=== PATIENT | female | born 1930 | race Caucasian/White ===

== ENCOUNTER 2017-01-04 20:11 | Inpatient (IN) | payer MEDICARE ==
[~2017-01-04] VITALS: Ht 154.9 cm; Wt 56.4 kg
[2017-01-04 21:40] LABS: BASO # 0.1 x10^3/uL (0.0-0.2); BASO % 1 % (0-3); EOS % 3 % (0-3); HEMATOCRIT 38.2 % (36.0-47.0); HEMOGLOBIN 12.8 g/dL (12.0-15.5); LYMPH # 1.2 x10^3/uL (1.0-4.8); LYMPH % 14 % (24-48); MEAN CORPUSCULAR HEMOGLOBIN 30 pg (25-35); MEAN CORPUSCULAR HGB CONC 34 g/dL (31-37); MEAN CORPUSCULAR VOLUME 88 fL (79-100); MONO % 9 % (0-9); NEUT % 74 % (31-73); PLATELET COUNT 327 x10^3/uL (140-400); RED BLOOD COUNT 4.34 x10^6/uL (3.50-5.40); RED CELL DISTRIBUTION WIDTH 14.1 % (11.5-14.5); WHITE BLOOD COUNT 9.2 x10^3/uL (4.0-11.0)
[2017-01-04 22:00] LABS: CREATININE 0.7 mg/dL (0.6-1.0); GFR 79.2; POTASSIUM 4.9 mmol/L (3.5-5.1)
[2017-01-04] MEDS ORDERED: ASPIRIN 325 MG TABLET PO ONE (22:00)
[2017-01-04 22:03] LABS: ALBUMIN 3.8 g/dL (3.4-5.0); DIRECT BILIRUBIN 0.1 mg/dL (0.0-0.2); TOTAL BILIRUBIN 0.5 mg/dL (0.2-1.0); TOTAL PROTEIN 7.7 g/dL (6.4-8.2)
[2017-01-04] MEDS ORDERED: ACETAMINOPHEN 325 MG TABLET. PO PRN (23:15)
[2017-01-04] MEDS ORDERED: NITROGLYCERIN SUBLINGUAL 0.4 MG BOTTLE OF 25. SL PRN (23:15)
[2017-01-04] MEDS ORDERED: ONDANSETRON PF 4 MG/2 ML VIAL. IV PRN (23:15)
[2017-01-05] VITALS (7 sets, daily range): BP systolic 97–171; BP diastolic 53–107
--- NOTE | 2017-01-05 00:13 | PHYS DOC ---
Past Medical History Past Medical History: High Cholesterol, Other Additional Past Medical Histor: hiatal hernia, VERTIGO Additional Past Surgical Histo: right wrist Alcohol Use: None Drug Use: None Adult General Chief Complaint Chief Complaint: CHEST PAIN-CARDIAC NATURE HPI HPI Patient is a 86 year old female who presents with chest pain radiating to her back that started about 1800 tonight while at rest. Pain was achy and tight to central lower chest. She felt this was acid reflux, so she took Tums without relief. She then was given Zantac by her friend and her symptoms are resolved at this time. She had pain for approximately 1.5 hour. She denies cough, dyspnea , nausea or vomiting, fever or chills, leg pain or swelling, hemoptysis, palpitations, diaphoresis, lightheadedness. Review of Systems Review of Systems Constitutional: Denies fever or chills [] Eyes: Denies change in visual acuity, redness, or eye pain [] HENT: Denies nasal congestion or sore throat [] Respiratory: Denies cough or shortness of breath [] Cardiovascular: No additional information not addressed in HPI [] GI: Denies abdominal pain, nausea, vomiting, bloody stools or diarrhea [] : Denies dysuria or hematuria [] Musculoskeletal: Denies back pain or joint pain [] Integument: Denies rash or skin lesions [] Neurologic: Denies headache, focal weakness or sensory changes [] Endocrine: Denies polyuria or polydipsia [] Current Medications Current Medications Current Medications Medications (Trade) Dose Ordered Sig/[facility] Start Time Stop Time Status Last Admin Dose Admin Aspirin (Rhina Aspirin) 325 mg 1X ONCE 01/04/17 22:00 01/04/17 22:01 DC 01/04/17 21:59 325 MG Allergies Allergies Allergies Coded Allergies Type Severity Reaction Last Updated Verified No Known Drug Allergies 06/01/15 No Physical Exam Physical Exam Constitutional: Well developed, well nourished, no acute distress, non-toxic appearance. [] HENT: Normocephalic, atraumatic, bilateral external ears normal, oropharynx moist, nose normal. [] Eyes: PERRLA, EOMI. [] Neck: Normal range of motion, supple. [] Cardiovascular:Heart rate regular rhythm [] Lungs & Thorax: Bilateral breath sounds clear to auscultation [] Abdomen: Bowel sounds normal, soft, no tenderness. [] Skin: Warm, dry, no erythema, no rash. [] Back: No tenderness, no CVA tenderness. [] Extremities: No tenderness, ROM intact, no edema, no palpable cord. [] Neurologic: Alert and oriented X 3, normal motor function, normal sensory function, no focal deficits noted. [] Psychologic: Affect normal, judgement normal, mood normal. [] Current Patient Data Vital Signs Vital Signs Date Time Temp Pulse Resp B/P Pulse Ox O2 Delivery O2 Flow Rate FiO2 01/04/17 21:59 97 191/93 98 Room Air 01/04/17 20:45 98.2 20 98.2 Lab Values Laboratory Tests Test 01/04/17 20:21 White Blood Count 9.2x10^3/uL (4.0-11.0) Red Blood Count 4.34x10^6/uL (3.50-5.40) Hemoglobin 12.8g/dL (12.0-15.5) Hematocrit 38.2% (36.0-47.0) Mean Corpuscular Volume 88fL (79-100) Mean Corpuscular Hemoglobin 30pg (25-35) Mean Corpuscular Hemoglobin Concent 34g/dL (31-37) Red Cell Distribution Width 14.1% (11.5-14.5) Platelet Count 327x10^3/uL (140-400) Neutrophils (%) (Auto) 74% (31-73) H Lymphocytes (%) (Auto) 14% (24-48) L Monocytes (%) (Auto) 9% (0-9) Eosinophils (%) (Auto) 3% (0-3) Basophils (%) (Auto) 1% (0-3) Neutrophils # (Auto) 6.8x10^3uL (1.8-7.7) Lymphocytes # (Auto) 1.2x10^3/uL (1.0-4.8) Monocytes # (Auto) 0.9x10^3/uL (0.0-1.1) Eosinophils # (Auto) 0.3x10^3/uL (0.0-0.7) Basophils # (Auto) 0.1x10^3/uL (0.0-0.2) Sodium Level 140mmol/L (136-145) Potassium Level 4.9mmol/L (3.5-5.1) Chloride Level 103mmol/L (98-107) Carbon Dioxide Level 31mmol/L (21-32) Anion Gap 6 (6-14) Blood Urea Nitrogen 9mg/dL (7-20) Creatinine 0.7mg/dL (0.6-1.0) Estimated GFR (Cockcroft-Gault) 79.2 Glucose Level 114mg/dL (70-99) H Calcium Level 10.0mg/dL (8.5-10.1) Total Bilirubin 0.5mg/dL (0.2-1.0) Direct Bilirubin 0.1mg/dL (0.0-0.2) Aspartate Amino Transferase (AST) 14U/L (15-37) L Alanine Aminotransferase (ALT) 13U/L (14-59) L Alkaline Phosphatase 73U/L (46-116) Troponin I Quantitative < 0.017ng/mL (0.000-0.055) BI-Mpp-M-Type Natriuretic Peptide 99pg/mL (0-449) Total Protein 7.7g/dL (6.4-8.2) Albumin 3.8g/dL (3.4-5.0) Lipase 219U/L (73-393) Laboratory Tests 01/04/17 20:21 Laboratory Tests 01/04/17 20:21 EKG EKG EKG as interpreted by me as normal sinus rhythm, rate 89, no ST-T changes, normal intervals, no ectopy Radiology/Procedures Radiology/Procedures Chest xray as interpreted by me with no acute cardiopulmonary disease process Course & Med Decision Making Course & Med Decision Making Pertinent Labs and Imaging studies reviewed. (See chart for details) Workup is unremarkable. MARIANO score 1. Discussed need for admission for ACS rule out. She agrees with plan. Discussed case with Dr. Phan, who agrees to admit. Cardiology consult placed. Dragon Disclaimer Dragon Disclaimer This electronic medical record was generated, in whole or in part, using a voice recognition dictation system. Departure Departure Impression: Primary Impression: Chest pain Disposition: ADMITTED INPATIENT Condition: STABLE Referrals: JILL WEINBERG MD (PCP) Problem Qualifiers Primary Impression: Chest pain Chest pain type: other chest pain Qualified Code: R07.89 - Other chest pain Shaheed MIN MD Jan 05, 2017 00:13
[2017-01-05] MEDS ORDERED: hydrALAZINE 20 MG/ML VIAL. IVP PRN (01:30)
[2017-01-05] MEDS: ALPRAZOLAM 0.25 MG TABLET PO PRN ×4 (01:39→21:52)
[2017-01-05] MEDS ORDERED: ALPR0.25 PO (02:53)
[2017-01-05] MEDS ORDERED: VITA150T PO (05:20)
[2017-01-05] MEDS ORDERED: GARL1CAP PO (05:20)
[2017-01-05] MEDS ORDERED: FERR159T3 PO (05:20)
--- NOTE | 2017-01-05 07:15 | EKG ---
[facility] [address] [place] [address] Test Date: 2017-01-05 Test Time: 06:05:39 Pat Name: ANIA HUNT Department: Room: 256 1 Gender: F Content Developer: : 1930 Requested By: Shaheed MIN Order Number: [id number] Reading MD: Lesli Cash Measurements Intervals [place] Rate: 75 P: ND: QRS: -12 QRSD: 102 T: -11 QT: 370 QTc: 416 Interpretive Statements SINUS RHYTHM, LEFTWARD AXIS NORMAL ECG Electronically Signed On 01-09-2017 15:12:11 INSURANCE INVESTIGATOR by Lesli Cash
--- NOTE | 2017-01-05 07:44 | RAD ---
Indication chest pain. PA and lateral views of the chest were obtained. Comparison is made to an exam 05/12/2016. Note is made of a previous two-view examination 03/14/2015. Heart size and pulmonary vessels are normal. Somewhat tortuous thoracic aorta is noted similar to the previous exams. Hiatus hernia is noted. An acute parenchymal infiltrate is not seen. Significant compression of a lower thoracic vertebral body segments is noted. IMPRESSION: No acute process apparent in the chest
--- NOTE | 2017-01-05 08:21 | EKG ---
[facility] [address] [place] [address] Test Date: 2017-01-04 Test Time: 20:52:42 Pat Name: ANIA HUNT Department: Room: 256 1 Gender: F Food And Beverage Coordinator: : 1930 Requested By: Shaheed MIN Order Number: [id number] Reading MD: Lesli Cash Measurements Intervals [place] Rate: 89 P: -8 MN: 180 QRS: -9 QRSD: 100 T: 34 QT: 340 QTc: 415 Interpretive Statements SINUS RHYTHM LEFTWARD AXIS POSSIBLY ABNORMAL ECG RI6.01 Compared to ECG 03/07/2016 14:40:14 No significant changes Electronically Signed On 01-09-2017 15:06:38 MAGNETO SPECIALIST by Lesli Cash
--- NOTE | 2017-01-05 09:23 | PDOC2 ---
JACLYN MALLOY ROUNDING MACHINE TENDER 01/05/17 0923: CARDIAC CONSULT DATE OF CONSULT Date of Consult DATE: 01/05/17 TIME: 09:12 REASON FOR CONSULT Reason for Consult: Chest pain REFERRING PHYSICIAN Referring Physician: Marc SOURCE Source: Chart review, Patient HISTORY OF PRESENT ILLNESS HISTORY OF PRESENT ILLNESS This is a pleasant 86 yo female admitted for complains of chest pain. Reports that this happened last night 1 hour after eating. She took tums with no relief and finally with zantac with some relief but not completely . Slight nausea was described with sustained CP with tightness but no radiation. The intensified sensation lasted about at least 1 hours. Denies any SOA. METS 5 per her description with no immediate change in her tolerance. Denies any palpitations. She has a significant hx of GERD and PUD in the past but no notable cardiac workup. She does have anxiety which she takes xanax for and her BP has been elevated and she blames her anxiety for this. She does not have any routine GERD symptoms. She also has HLP and stopped taking her statin from 6 months ago since her PCP retired. Does not take any ASA. Denies any CAD, falls, recent infection, VTE. PAST MEDICAL HISTORY Cardiovascular: HTN, Hyperlipidemia CENTRAL NERVOUS SYSTEM: Vertigo GI: Diverticulosis, GERD (severe esophagitis), Peptic Ulcer disease Heme/Onc: Anemia NOS Psych: Anxiety Musculoskeletal: low back pain, Osteoarthritis, Other (vertebral compression fractures) Rheumatologic: No pertinent hx Infectious disease: No pertinent hx ENT: No pertinent hx Renal/: No pertinent hx Endocrine: Osteoporosis Dermatology: No pertinent hx PAST SURGICAL HISTORY Past Surgical History: Other (right wrist surgery) FAMILY HISTORY Family History noncontributory to age SOCIAL HISTORY Smoke: No ALCOHOL: none Drugs: None Lives: Alone CURRENT MEDICATIONS CURRENT MEDICATIONS Current Medications Medications (Trade) Dose Ordered Sig/Jossie Route PRN Reason Start Time Stop Time Status Last Admin Dose Admin Aspirin (Rhina Aspirin) 325 mg 1X ONCE PO 01/04/17 22:00 01/04/17 22:01 DC 01/04/17 21:59 Alprazolam (Xanax) 0.25 mg PRN Q8HRS PRN PO ANXIETY / AGITATION 01/05/17 01:30 01/05/17 01:39 ALLERGIES ALLERGIES: Coded Allergies: egg (Verified Allergy, Intermediate, 01/05/17) ROS Review of System 14 point ROS evaluated with pertinent positives noted per HPI PHYSICAL EXAM General: Alert, Oriented X3, Cooperative, No acute distress HEENT: Atraumatic, Mucous membr. moist/pink Lungs: Clear to auscultation, Normal air movement Heart: Regular rate, Normal S1, Normal S2, Other (2/6 systolic murmur to SHAHLA border) Abdomen: Soft, No tenderness Extremities: No cyanosis, Other (1+ bilateral LE pitting edema) Skin: No breakdown, No significant lesion Neuro: Normal speech, Sensation intact Psych/Mental Status: Mental status NL, Mood NL MUSCULOSKELETAL: Osteoarthritic changes both hands VITALS VITALS Vital Signs Date Time Temp Pulse Resp B/P Pulse Ox O2 Delivery O2 Flow Rate FiO2 01/05/17 07:43 98.4 71 18 168/81 95 Room Air 98.4 LABS Lab: Laboratory Tests Test 01/04/17 20:21 01/05/17 04:45 White Blood Count 9.2x10^3/uL (4.0-11.0) Red Blood Count 4.34x10^6/uL (3.50-5.40) Hemoglobin 12.8g/dL (12.0-15.5) Hematocrit 38.2% (36.0-47.0) Mean Corpuscular Volume 88fL (79-100) Mean Corpuscular Hemoglobin 30pg (25-35) Mean Corpuscular Hemoglobin Concent 34g/dL (31-37) Red Cell Distribution Width 14.1% (11.5-14.5) Platelet Count 327x10^3/uL (140-400) Neutrophils (%) (Auto) 74% (31-73) Lymphocytes (%) (Auto) 14% (24-48) Monocytes (%) (Auto) 9% (0-9) Eosinophils (%) (Auto) 3% (0-3) Basophils (%) (Auto) 1% (0-3) Neutrophils # (Auto) 6.8x10^3uL (1.8-7.7) Lymphocytes # (Auto) 1.2x10^3/uL (1.0-4.8) Monocytes # (Auto) 0.9x10^3/uL (0.0-1.1) Eosinophils # (Auto) 0.3x10^3/uL (0.0-0.7) Basophils # (Auto) 0.1x10^3/uL (0.0-0.2) Sodium Level 140mmol/L (136-145) Potassium Level 4.9mmol/L (3.5-5.1) Chloride Level 103mmol/L (98-107) Carbon Dioxide Level 31mmol/L (21-32) Anion Gap 6 (6-14) Blood Urea Nitrogen 9mg/dL (7-20) Creatinine 0.7mg/dL (0.6-1.0) Estimated GFR (Cockcroft-Gault) 79.2 Glucose Level 114mg/dL (70-99) Calcium Level 10.0mg/dL (8.5-10.1) Total Bilirubin 0.5mg/dL (0.2-1.0) Direct Bilirubin 0.1mg/dL (0.0-0.2) Aspartate Amino Transf (AST/SGOT) 14U/L (15-37) Alanine Aminotransferase (ALT/SGPT) 13U/L (14-59) Alkaline Phosphatase 73U/L (46-116) Troponin I Quantitative < 0.017ng/mL (0.000-0.055) < 0.017ng/mL (0.000-0.055) HW-Vpo-U-Type Natriuretic Peptide 99pg/mL (0-449) Total Protein 7.7g/dL (6.4-8.2) Albumin 3.8g/dL (3.4-5.0) Lipase 219U/L (73-393) ASSESSMENT/PLAN ASSESSMENT/PLAN 1. Chest pain 2. GERD/hiatal hernia: likely exacerbation with hx of PUD 3. Accelerated HTN: possible hypertensive heart disease 4. HLP 5. Anxiety 6. Hx of thoracic vertebral compression Recommendations 1. Troponin series normal, EKG reading SR per ED review, since unable to open in EMR 2. CAD pretest prob 34%. MPI, TTE today 3. Recommend routine PPI/GI consult 4. Start on lisinopril. Restart statin. 5. lipid panel, TSH 6. Will consider ECASA pending result of cardiac testing. IF GI is the culprit then may start at a later date. Problems: AMADA REYNOLDS MD 01/05/17 1830: CARDIAC CONSULT ALLERGIES ALLERGIES: Coded Allergies: egg (Verified Allergy, Intermediate, 2/8/17) ASSESSMENT/PLAN ASSESSMENT/PLAN Patient seen and examined. Agree with above nurse practitioner note. 86-year- old woman presenting with atypical chest pain. On examination she has normal heart and lung sounds. Cardiac testing is unremarkable. No further cardio vascular testing necessary at this time. Continue supportive care. Follow up as needed. Thank you for this consultation. Problems: JACLYN MALLOY APRN Jan 05, 2017 09:23 AMADA REYNOLDS MD Jan 05, 2017 18:30
[2017-01-05] MEDS ORDERED: hydrALAZINE 20 MG/ML VIAL. IVP ONE (09:30)
[2017-01-05] MEDS ORDERED: REGADENOSON 0.4 MG/5 ML DISP.SYRIN. IV ONE (10:45)
--- NOTE | 2017-01-05 11:03 | CARD ---
APPROVED REPORT EXAM: Two-dimensional and M-mode echocardiogram with Doppler and color Doppler. Other Information Quality : Average Rhythm : NSR INDICATION Chest Pain 2D DIMENSIONS RVDd2.2 (2.9-3.5cm)Left Atrium(2D)2.6 (1.6-4.0cm) IVSd0.9 (0.7-1.1cm)Aortic Root(2D)3.0 (2.0-3.7cm) LVDd4.3 (3.9-5.9cm)LVOT Diameter2.0 (1.8-2.4cm) PWd0.9 (0.7-1.1cm)LVDs2.3 (2.5-4.0cm) SV63.8 mlLVEF(%)68.4 (>50%) Aortic Valve AoV Peak David.157.5cm/sAoV VTI24.6cm AO Peak GR.9.9mmHgLVOT Peak David.101.8cm/s AO Mean GR.6mmHgAVA (VMAX)2.00cm2 ALEXUS (VTI)2.60cm2 Mitral Valve MV E Zlaptwuq01.6cm/sMV E Peak Gr.4mmHg MV DECEL [id number] A Vcbzhjwx84.8cm/s MV E Mean Gr.3mmHgMV UUP80dv E/A Ratio0.6MVA (PHT)9.25cm2 Tricuspid Valve TR P. Ornefzfb568rd/sRAP DDCEORHV6qiDo TR Peak Gr.87yzJoBOTW68yiFc Pulmonary Vein S1 Uceenztf91.8cm/sD2 Jwczoycs03.1cm/s PVa elrbciww128sbrg LEFT VENTRICLE The left ventricle is normal size. There is normal left ventricular wall thickness. Left ventricle sy stolic function is normal. The Ejection Fraction is 65-70%. There is normal LV segmental wall motion. Tissue Doppler imaging reveals mild left ventricular diastolic dysfunction. Transmitral Doppler flow pattern is Grade I-abnormal relaxation pattern. RIGHT VENTRICLE The right ventricle is normal size. The right ventricular systolic function is normal. ATRIA The left atrium size is normal. The right atrium size is normal. The interatrial septum is intact wit h no evidence for an atrial septal defect or patent foramen ovale as noted on 2-D or Doppler imaging. AORTIC VALVE The aortic valve is calcified but opens well. The aortic valve is trileaflet. Doppler and Color Flow revealed no significant aortic regurgitation. There is no significant aortic valvular stenosis. MITRAL VALVE The mitral valve leaflets are thickened and calcified. The anterior mitral valve leaflet appears to b ow in the middle. There is no mitral valve stenosis. Doppler and Color Flow revealed mild mitral regu rgitation. TRICUSPID VALVE The tricuspid valve is normal in structure and function. Doppler and Color Flow revealed mild to mode rate tricuspid regurgitation. The PA pressure was estimated at 36 mmHg. There is no tricuspid valve s tenosis. PULMONIC VALVE The pulmonic valve is not well visualized. Doppler and Color Flow revealed no pulmonic valvular regur gitation. There is no pulmonic valvular stenosis. GREAT VESSELS The aortic root is normal in size. Normal pulmonary venous flow (Doppler). The IVC is normal in size and collapses >50% with inspiration. PERICARDIAL EFFUSION There is no evidence of significant pericardial effusion. Critical Notification Critical Value: No <Conclusion> Left ventricle systolic function is normal. The Ejection Fraction is 65-70%. There is normal LV segmental wall motion. Transmitral Doppler flow pattern is Grade I-abnormal relaxation pattern. Mild mitral regurgitation. Mild to moderate tricuspid regurgitation. The PA pressure was estimated at 36 mmHg. There is no evidence of significant pericardial effusion.
[2017-01-05] MEDS: PANTOPRAZOLE 40 MG TABLET. PO SCH (12:18)
[2017-01-05] MEDS: LISINOPRIL 20 MG TABLET PO SCH (12:18)
--- NOTE | 2017-01-05 14:17 | PDOC1 ---
History and Physical Past Medical History Cardiovascular: Hyperlipidemia CENTRAL NERVOUS SYSTEM: Vertigo GI: Diverticulosis, GERD (severe esophagitis), Peptic Ulcer disease Heme/Onc: Anemia NOS Psych: Anxiety Past Surgical History Past Surgical History: Other (right wrist surgery) Family History Family History: Other (NO HEART DISEASE) Social History Smoke: No ALCOHOL: none Drugs: None Current Problem List Problem List Problems Medical Problems: (1) Chest pain Status: Acute Current Medications Current Medications Current Medications Medications (Trade) Dose Ordered Sig/Jossie Start Time Stop Time Status Last Admin Dose Admin Acetaminophen (Tylenol) 650 mg PRN Q4HRS PRN 01/04/17 23:15 01/05/17 23:14 Alprazolam (Xanax) 0.25 mg PRN Q6HRS PRN 01/05/17 15:30 Aspirin (Rhina Aspirin) 325 mg 1X ONCE 01/04/17 22:00 01/04/17 22:01 DC 01/04/17 21:59 325 MG Atorvastatin Calcium (Lipitor) 10 mg QHS 01/05/17 21:00 Hydralazine HCl (Apresoline) 10 mg 1X ONCE 01/05/17 09:30 01/05/17 09:31 DC Lisinopril (Prinivil) 20 mg DAILY 01/05/17 10:30 01/05/17 12:18 20 MG Nitroglycerin (Nitrostat) 0.4 mg PRN Q5MIN PRN 01/04/17 23:15 01/05/17 23:14 Ondansetron HCl (Zofran) 4 mg PRN Q8HRS PRN 01/04/17 23:15 01/05/17 23:14 Pantoprazole Sodium (Protonix) 40 mg DAILYAC 01/05/17 10:30 01/05/17 12:18 40 MG Regadenoson (Lexiscan) 0.4 mg 1X ONCE 01/05/17 10:45 01/05/17 10:48 DC 01/05/17 11:53 0.4 MG Allergies Allergies Allergies Coded Allergies Type Severity Reaction Last Updated Verified egg Allergy Intermediate 01/05/17 Yes ROS Review of System CONSTITUTIONAL: No fever or chills EYES: No recent changes SKIN: No rash or itching CARDIOVASCULAR: chest pain, no syncope, palpitations, or edema RESPIRATORY: No SOB or cough GASTROINTESTINAL: No nausea, vomiting or abdominal pain NEUROLOGICAL: No headaches or weakness ENDOCRINE: No cold or heat intolerance GENITOURINARY: No urgency or frequency of urination MUSCULOSKELETAL: No back pain or joint pain LYMPHATICS: No enlarged lymph nodes PSYCHIATRIC: anxiety Physical Exam Physical Exam GEN.: No apparent distress. Alert and oriented. HEENT: Head is normocephalic, atraumatic NECK: Supple. no jvd LUNGS: Clear to auscultation. normal airflow HEART: Tachycardia, S1, S2 present. Peripheral pulses intact ABDOMEN: Soft, nontender. Positive bowel sounds. EXTREMITIES: Without any cyanosis. NEUROLOGIC: Normal speech, normal tone PSYCHIATRIC: Normal affect, normal mood. SKIN: No ulcerations Vitals Vitals Vital Signs Date Time Temp Pulse Resp B/P Pulse Ox O2 Delivery O2 Flow Rate FiO2 01/05/17 12:20 120 127/72 Room Air 01/05/17 07:43 98.4 18 95 98.4 Labs Labs Laboratory Tests Test 01/04/17 20:21 01/05/17 04:45 01/05/17 12:20 White Blood Count 9.2x10^3/uL (4.0-11.0) Red Blood Count 4.34x10^6/uL (3.50-5.40) Hemoglobin 12.8g/dL (12.0-15.5) Hematocrit 38.2% (36.0-47.0) Mean Corpuscular Volume 88fL (79-100) Mean Corpuscular Hemoglobin 30pg (25-35) Mean Corpuscular Hemoglobin Concent 34g/dL (31-37) Red Cell Distribution Width 14.1% (11.5-14.5) Platelet Count 327x10^3/uL (140-400) Neutrophils (%) (Auto) 74% (31-73) Lymphocytes (%) (Auto) 14% (24-48) Monocytes (%) (Auto) 9% (0-9) Eosinophils (%) (Auto) 3% (0-3) Basophils (%) (Auto) 1% (0-3) Neutrophils # (Auto) 6.8x10^3uL (1.8-7.7) Lymphocytes # (Auto) 1.2x10^3/uL (1.0-4.8) Monocytes # (Auto) 0.9x10^3/uL (0.0-1.1) Eosinophils # (Auto) 0.3x10^3/uL (0.0-0.7) Basophils # (Auto) 0.1x10^3/uL (0.0-0.2) Sodium Level 140mmol/L (136-145) Potassium Level 4.9mmol/L (3.5-5.1) Chloride Level 103mmol/L (98-107) Carbon Dioxide Level 31mmol/L (21-32) Anion Gap 6 (6-14) Blood Urea Nitrogen 9mg/dL (7-20) Creatinine 0.7mg/dL (0.6-1.0) Estimated GFR (Cockcroft-Gault) 79.2 Glucose Level 114mg/dL (70-99) Calcium Level 10.0mg/dL (8.5-10.1) Total Bilirubin 0.5mg/dL (0.2-1.0) Direct Bilirubin 0.1mg/dL (0.0-0.2) Aspartate Amino Transf (AST/SGOT) 14U/L (15-37) Alanine Aminotransferase (ALT/SGPT) 13U/L (14-59) Alkaline Phosphatase 73U/L (46-116) Troponin I Quantitative < 0.017ng/mL (0.000-0.055) < 0.017ng/mL (0.000-0.055) < 0.017ng/mL (0.000-0.055) AU-Wkv-J-Type Natriuretic Peptide 99pg/mL (0-449) Total Protein 7.7g/dL (6.4-8.2) Albumin 3.8g/dL (3.4-5.0) Lipase 219U/L (73-393) Triglycerides Level 67mg/dL (0-150) Cholesterol Level 197mg/dL (0-200) LDL Cholesterol, Calculated 118mg/dL (0-100) VLDL Cholesterol, Calculated 13mg/dL (0-40) HDL Cholesterol 66mg/dL (40-60) Cholesterol/HDL Ratio 3.0 Thyroid Stimulating Hormone (TSH) 1.725uIU/mL (0.358-3.74) Laboratory Tests Test 01/04/17 20:21 01/05/17 04:45 01/05/17 12:20 White Blood Count 9.2x10^3/uL (4.0-11.0) Red Blood Count 4.34x10^6/uL (3.50-5.40) Hemoglobin 12.8g/dL (12.0-15.5) Hematocrit 38.2% (36.0-47.0) Mean Corpuscular Volume 88fL (79-100) Mean Corpuscular Hemoglobin 30pg (25-35) Mean Corpuscular Hemoglobin Concent 34g/dL (31-37) Red Cell Distribution Width 14.1% (11.5-14.5) Platelet Count 327x10^3/uL (140-400) Neutrophils (%) (Auto) 74% (31-73) Lymphocytes (%) (Auto) 14% (24-48) Monocytes (%) (Auto) 9% (0-9) Eosinophils (%) (Auto) 3% (0-3) Basophils (%) (Auto) 1% (0-3) Neutrophils # (Auto) 6.8x10^3uL (1.8-7.7) Lymphocytes # (Auto) 1.2x10^3/uL (1.0-4.8) Monocytes # (Auto) 0.9x10^3/uL (0.0-1.1) Eosinophils # (Auto) 0.3x10^3/uL (0.0-0.7) Basophils # (Auto) 0.1x10^3/uL (0.0-0.2) Sodium Level 140mmol/L (136-145) Potassium Level 4.9mmol/L (3.5-5.1) Chloride Level 103mmol/L (98-107) Carbon Dioxide Level 31mmol/L (21-32) Anion Gap 6 (6-14) Blood Urea Nitrogen 9mg/dL (7-20) Creatinine 0.7mg/dL (0.6-1.0) Estimated GFR (Cockcroft-Gault) 79.2 Glucose Level 114mg/dL (70-99) Calcium Level 10.0mg/dL (8.5-10.1) Total Bilirubin 0.5mg/dL (0.2-1.0) Direct Bilirubin 0.1mg/dL (0.0-0.2) Aspartate Amino Transf (AST/SGOT) 14U/L (15-37) Alanine Aminotransferase (ALT/SGPT) 13U/L (14-59) Alkaline Phosphatase 73U/L (46-116) Troponin I Quantitative < 0.017ng/mL (0.000-0.055) < 0.017ng/mL (0.000-0.055) < 0.017ng/mL (0.000-0.055) SZ-Jty-C-Type Natriuretic Peptide 99pg/mL (0-449) Total Protein 7.7g/dL (6.4-8.2) Albumin 3.8g/dL (3.4-5.0) Lipase 219U/L (73-393) Triglycerides Level 67mg/dL (0-150) Cholesterol Level 197mg/dL (0-200) LDL Cholesterol, Calculated 118mg/dL (0-100) VLDL Cholesterol, Calculated 13mg/dL (0-40) HDL Cholesterol 66mg/dL (40-60) Cholesterol/HDL Ratio 3.0 Thyroid Stimulating Hormone (TSH) 1.725uIU/mL (0.358-3.74) VTE Prophylaxis Ordered VTE Prophylaxis Devices: Yes VTE Pharmacological Prophylaxi: No MARY DEVI MD Jan 05, 2017 14:17
--- NOTE | 2017-01-05 14:45 | RAD ---
APPROVED REPORT Test Type: Pharmacological Stress Nurse/Tech: Caitlyn Irby Test Indications: Chest Pain Cardiac History: see ehr Medications: see ehr Medical History: see ehr Resting ECG: ST Resting Heart Rate: 108 bpm Resting Blood Pressure: 149/80mmHg Pretest Chest Pain: None Nurse/Tech Notes Lungs CTA, S1, S2 Consent: The procedure was explained to the patient in lay terms. Informed consent was witnessed. Nikolai eout was entered into [employer]. History and Stress Test performed by Josef CalderónNGeorgette Pharm. Details Pharmacologic stress testing was performed using 0.4mg per 5ml of regadenoson given intravenously ove r 7-10 seconds. Stress Symptoms No chest pain or symptoms. POST EXERCISE Reason for Termination: Infusion complete Max HR: 132 bpm Max Blood Pressure: 158/88mmHg Blood Pressure response to exercise: Normal blood pressure response during stress. Chest Pain: No. Arrhythmia: No. ST Change: No. INTERPRETATION Stress EKG Conclusion: Baseline EKG showed sinus tachycardia. No ischemic changes at peak stress. N o significant arrhythmias. Imaging Protocol IMAGE PROTOCOL: Rest Tc-99m/stress Tc-99m 1 day Rest: Stress: Viability: Radiopharm.Tc99m [id number] Sestamibi Dose11.3mCi 34mCi Duration 15min. 10min. Img Date 01/05/2017 01/05/2017 Inj-Img [id number]. 60min. Rest Admin Site:IV - Right AntecubitalAdministrator:CHRISTOS Moore, ARRT (R)(N) Stress Admin Site: IV - Right AntecubitalAdministrator: Dee Luther, RT (R)(N) STRESS DATA End Diast. Vol.55.0mlAv. Heart Oxrv286.0bpm End Syst. Vol.17.0mlCO Index BSA0.0L/min Myocardial Mass99.0gEject. Nmdtkden24.0% Stress Rates Pk. Fill Rate7.14EDV/secLVtime Pk. Fill 118.22msec Pk. Empty Rate6.03ESV/secLVtime Pk. Eject84.42msec 11/30 Pk. Fill1.20EDV/sec Stress Scores Regional WT0.00Summed WT1.00 Regional WM0.00Summed WM2.00 Study quality was good. Left Ventricular size was Normal at Rest and Stress. Lung uptake was Normal. Left Ventricular ejection fraction is 69%. The rest and stress images show normal perfusion, normal contraction and thickening. LV Perf. Quant 17 Seg. SSS2.00 17 Seg. SRS5.00 17 Seg. SDS1.00 Stress Defect Extent (% LAD)0.00Rest Defect Extent (% LAD)0.00Rev. Defect Extent (% LAD)0.00 Stress Defect Extent (% LCX) 21.30Rest Defect Extent (% LCX)22.50Rev. Defect Extent (% LCX)0.00 Stress Defect Extent (% RCA)0.00Rest Defect Extent (% RCA)0.00Rev. Defect Extent (% RCA)0.00 Stress Defect Extent (% MARCIE)4.10Rest Defect Extent (% MARCIE)6.70Rev. Defect Extent (% MARCIE)0.00 Conclusion 1. Regadenoson cardioisotope stress test did not show any evidence of ischemia or infarct. 2. Normal left ventricular systolic function with ejection fraction calculated at 69%. 3. Low risk for cardiac events.
--- NOTE | 2017-01-05 18:53 | HP ---
ADMIT DATE: 01/05/2017 CHIEF COMPLAINT: Chest pain. HISTORY OF PRESENT ILLNESS: An 86-year-old female patient with prior history of questionable hypertension, presented to the ER with complaints of chest pain that started yesterday around 6:00 p.m. She noted that the pain as centralized discomfort. The pain started as epigastric in nature and she took some Tums; however, her symptoms did not relieve. At the same time, the patient was complaining of severe anxiety related to some social stress factors and as per the patient, which could be a contributing factor for her shortness of breath. She denies any palpitations or syncope or prior history of coronary artery disease. At the time of my examination, the patient is still anxious; however, she did not feel any chest pain. PAST MEDICAL HISTORY AND REVIEW OF SYSTEMS: Please see my electronic H and P. LABORATORY FINDINGS: Three sets of troponins less than 0.017. Sodium 140, potassium is 4.9, chloride is 103, carbon dioxide 31, anion gap is 6, creatinine is 0.7, glucose is 114. Total bilirubin 0.5, lipase is 217. Hematology: WBC is 9.2, hemoglobin is 12.8, MCV is 88. IMAGING STUDIES: 1. Chest x-ray: No acute process seen. 2. EKG: Not able to obtain, as per the ER report, normal sinus rhythm with mild tachycardia, no acute ST-T wave changes. ASSESSMENT: 1. Chest pain, unclear etiology. Needs to rule out acute coronary syndrome, possible differentials gastritis versus severe anxiety. 2. Hypertension. PLAN: 1. She was started on Xanax for anxiety and lisinopril for hypertension and Protonix for GERD. Cardiology has been consulted and she is scheduled for nuclear stress test and echocardiogram today. At the time of my examination, the patient continued to be in sinus tachycardia and she was severely anxious, was recommended to have some Xanax. 2. Due to her unstable vitals, she is not stable to go home today. 3. If the patient's symptoms persisted, I will consult gastroenterology for further recommendations. MARY DEVI MD DR: USHA/zakiya JOB#: [id number] / [id number] MTDD
--- NOTE | 2017-01-05 20:49 | ACF ---
Admission Forms Criteria HYPERTENSION Clinical Indications for Admission to Inpatient Care ( Place "X" for any and all applicable criteria): Admission is indicated for ANY ONE of the following(1)(2)(3)(4): [ ]I. Hypertensive emergency, with evidence of acute and progressing target organ disease as indicated by ANY ONE of the following: [ ]a) Hypertensive encephalopathy (eg, confusion, altered mental status) [ ]b) Cerebral infarction [ ]c) Intracranial hemorrhage [ ]d) Myocardial ischemia or infarction [ ]e) Pulmonary edema [ ]f) Aortic dissection [ ]g) Seizure [ ]h) Acute renal insufficiency [ ]i) Papilledema [ ]j) Microangiopathic hemolytic anemia [ ]II. Adrenergic crisis (eg, severe hypertension due to pheochromocytoma crisis, cocaine or amphetamine intoxication, or clonidine withdrawal) [X]III. Severe hypertension (SBP greater than 180 mmHg or DBP greater than 110 mmHg or greater than the 95th percentile for age, gender, and height in pediatric patients) that cannot be controlled (eg, to SBP less than 160 mmHg and DBP less than 100 mmHg in adults) by treatment with oral medication in emergency department or observation care Extended stay beyond goal length of stay may be needed for(11)(12)(13): [ ]a) Persistent hypertensive encephalopathy [ ]b) Continuation of pulmonary edema [ ]c) Recurring or persistent severe hypertension [ ]d) Target organ damage (eg, angina, stroke, aortic dissection) [ ]e) Associated renal insufficiency The original [facility] content created by [employer] has been revised. The portions of the content which have been revised are identified through the use of italic text or in bold, and [facility] has neither reviewed nor approved the modified material. All other unmodified content is copyright [facility] [email or web address]. Please see references footnoted in the original [facility] [employer] edition 2016 Admission Criteria Met?: Yes ALBIN FINNEY Jan 05, 2017 20:49
[2017-01-05] MEDS ORDERED: ATORVASTATIN CALCIUM 10 MG TABLET. PO SCH (21:00)
[2017-01-06 03:30] VITALS: BP 102/64
[2017-01-06 07:15] VITALS: BP 113/57
[2017-01-06] MEDS: PANTOPRAZOLE 40 MG TABLET. PO SCH (08:38)
[2017-01-06] MEDS: LISINOPRIL 20 MG TABLET PO SCH (09:00)
[2017-01-06] MEDS ORDERED: PANT40TA5 PO (10:06)
[2017-01-06] MEDS ORDERED: ALPR0.25 PO (10:06)
[2017-01-06] MEDS ORDERED: LISI-338 PO (10:06)
[2017-01-06] MEDS: ALPRAZOLAM 0.25 MG TABLET PO PRN (10:17)
--- NOTE | 2017-01-13 01:23 | DS ---
DATE OF DISCHARGE: 01/06/2017 DISCHARGE DIAGNOSIS: Chest pain likely due to severe anxiety. CONSULTATIONS: Cardiology. BRIEF HOSPITAL COURSE: An 86-year-old female who presents to the hospital with complaints of chest pain. She had 3 sets of troponins, which are negative and Cardiology was consulted. However, the patient is severely anxious. Her symptoms got better with Xanax. She has imaging studies, which is nuclear medicine scan, which is negative for any ischemia. She deemed clinically stable enough to go home and follow up with primary care doctor. The patient was sent home with some Xanax. She admits a lot of stress in the family. DISCHARGE EXAMINATION: GENERAL: Alert, oriented x 3. HEART: S1, S2 present. LUNGS: Clear to auscultation. ABDOMEN: Soft, nontender, no organomegaly. EXTREMITIES: No edema. DISCHARGE DISPOSITION: Home. DISCHARGE CONDITION: Stable. FOLLOWUP: With primary care doctor for anxiety MEDICATIONS: Reviewed and reconciled. Please see MRAD. Total time spent for discharge is 32 minutes for patient education, counseling, and coordination of care and physical exam. MARY DEVI MD DR: USHA/zakiya JOB#: [id number] / [id number] NAYELI
== END 2017-01-06 12:50 | disposition home or self-care (01) | DRG 880 ==
LOC: ER 20:11 → 2 SOUTH 22:40 → OBSVTOIN 01-05 14:22
PROVIDERS: ADMIT Internal Medicine; ATTEND Internal Medicine
DX: F41.9 Anxiety disorder, unspecified (principal); I10 Essential (primary) hypertension; E78.00 Pure hypercholesterolemia, unspecified; E78.5 Hyperlipidemia, unspecified; K21.9 Gastro-esophageal reflux disease without esophagitis; M81.0 Age-related osteoporosis without current pathological fracture; K57.90 Diverticulosis of intestine, part unspecified, without perforation or abscess without bleeding; Z60.2 Problems related to living alone; K44.9 Diaphragmatic hernia without obstruction or gangrene; M54.5 Low back pain; Z91.012 Allergy to eggs; Z87.11 Personal history of peptic ulcer disease
CPT/HCPCS: 36415; 71020; 78452; 80048; 80061; 80076; 83690; 83880; 84443; 84484; 85027; 93005; 93017; 93306; 96374; 96375; 96376; A9500; G0378; G0379; J0360; J2785

== ENCOUNTER 2017-07-26 20:04 | Observation (INO) | payer MEDICARE ==
[~2017-07-26] VITALS: Ht 152.4 cm; Wt 55.1 kg
[~2017-07-26 20:04] MED LIST: ALPR0.25 PO; FERR159T3 PO; GARL1CAP PO; LISI-338 PO; PANT40TA5 PO; VITA150T PO
[2017-07-26] MEDS ORDERED: IV NORMAL SALINE 1000ML BAG 1,000 ML IV SCH (21:17)
--- NOTE | 2017-07-26 21:19 | PHYS DOC ---
Past Medical History Past Medical History: Anxiety, GERD, High Cholesterol, Hypertension, Other Additional Past Medical Histor: hiatal hernia, VERTIGO Past Surgical History: Appendectomy Additional Past Surgical Histo: right wrist Additional Information: Non smoker Alcohol Use: None Drug Use: None Adult General Chief Complaint Chief Complaint: GI PROBLEM HPI HPI Patient is a 87 year old female who presents with chest discomfort. She describes this as her "acid reflux." She states it occurred about 1800 p.m. after she ate steak with tomatoes. She states she got out of her recliner and had sharp chest pain. [place] short of air with that and nauseated. No vomiting. Pain does not radiate. No recent travel. She states her prior physician has retired and she's been out of her blood pressure medicine for a month and is not on her cholesterol medication either. Denies tobacco use. Followed by Dr Obando. Review of Systems Review of Systems Constitutional: Denies fever or chills Eyes: Denies change in visual acuity, redness, or eye pain HENT: Denies nasal congestion or sore throat Respiratory: Denies cough; SOME shortness of breath Cardiovascular: see HPI GI: Denies abdominal pain, SOME nausea, NO vomiting, bloody stools or diarrhea : Denies dysuria or hematuria Musculoskeletal: Denies back pain or joint pain Integument: Denies rash or skin lesions Neurologic: Denies headache, focal weakness or sensory changes Current Medications Current Medications Current Medications Medications (Trade) Dose Ordered Sig/Jossie Start Time Stop Time Status Last Admin Dose Admin Famotidine (Pepcid) 20 mg 1X ONCE 07/26/17 21:30 07/26/17 21:31 DC 07/26/17 21:56 20 MG Morphine Sulfate 2 mg 1X ONCE 07/26/17 21:30 07/26/17 21:31 DC Sodium Chloride 1,000 ml @ 100 mls/hr Q10H 07/26/17 21:17 07/27/17 07:16 07/26/17 21:57 100 MLS/HR Allergies Allergies Allergies Coded Allergies Type Severity Reaction Last Updated Verified egg Allergy Intermediate 01/05/17 Yes Physical Exam Physical Exam Constitutional: Well developed, well nourished, no acute distress, non-toxic appearance. HENT: Normocephalic, atraumatic, bilateral external ears normal, oropharynx moist, no oral exudates, nose normal. Eyes: PERRLA, EOMI, conjunctiva normal, no discharge. Neck: Normal range of motion, no tenderness, supple, no stridor. Cardiovascular:Heart rate regular rhythm, no murmur Lungs & Thorax: Bilateral breath sounds clear to auscultation Abdomen: Bowel sounds normal, soft, minimal high epigastric tenderness, no masses, no pulsatile masses. Skin: Warm, dry, no erythema, no rash. Back: No tenderness, no CVA tenderness. Extremities: No tenderness, no cyanosis, no clubbing, ROM intact, no edema. Neurologic: Alert and oriented X 3, normal motor function, normal sensory function, no focal deficits noted. Psychologic: Affect normal, judgement normal, mood normal. Current Patient Data Vital Signs Vital Signs Date Time Temp Pulse Resp B/P (MAP) Pulse Ox O2 Delivery O2 Flow Rate FiO2 07/26/17 22:30 81 20 162/79 (106) 95 Room Air 07/26/17 20:30 98.0 98.0 Lab Values Laboratory Tests Test 07/26/17 20:13 White Blood Count 9.9 x10^3/uL (4.0-11.0) Red Blood Count 4.55 x10^6/uL (3.50-5.40) Hemoglobin 13.5 g/dL (12.0-15.5) Hematocrit 40.4 % (36.0-47.0) Mean Corpuscular Volume 89 fL (79-100) Mean Corpuscular Hemoglobin 30 pg (25-35) Mean Corpuscular Hemoglobin Concent 34 g/dL (31-37) Red Cell Distribution Width 14.5 % (11.5-14.5) Platelet Count 327 x10^3/uL (140-400) Neutrophils (%) (Auto) 71 % (31-73) Lymphocytes (%) (Auto) 18 % (24-48) L Monocytes (%) (Auto) 8 % (0-9) Eosinophils (%) (Auto) 3 % (0-3) Basophils (%) (Auto) 1 % (0-3) Neutrophils # (Auto) 7.0 x10^3uL (1.8-7.7) Lymphocytes # (Auto) 1.8 x10^3/uL (1.0-4.8) Monocytes # (Auto) 0.8 x10^3/uL (0.0-1.1) Eosinophils # (Auto) 0.3 x10^3/uL (0.0-0.7) Basophils # (Auto) 0.1 x10^3/uL (0.0-0.2) Sodium Level 140 mmol/L (136-145) Potassium Level 3.4 mmol/L (3.5-5.1) L Chloride Level 101 mmol/L (98-107) Carbon Dioxide Level 31 mmol/L (21-32) Anion Gap 8 (6-14) Blood Urea Nitrogen 13 mg/dL (7-20) Creatinine 0.8 mg/dL (0.6-1.0) Estimated GFR (Cockcroft-Gault) 67.7 Glucose Level 133 mg/dL (70-99) H Calcium Level 9.8 mg/dL (8.5-10.1) Creatine Kinase 51 U/L (26-192) Creatine Kinase MB (Mass) 0.8 ng/mL (0.0-3.6) Creatine Kinase MB Relative Index % (0-4) Troponin I Quantitative < 0.017 ng/mL (0.000-0.055) VT-Kfy-S-Type Natriuretic Peptide 128 pg/mL (0-449) Lipase 257 U/L (73-393) Laboratory Tests 07/26/17 20:13 Laboratory Tests 07/26/17 20:13 EKG EKG EKG interpreted by myself upon my arrival on shift 21:35 PM shows sinus rhythm, 94, left croft axis, nonspecific ST changes. No ST elevation. Radiology/Procedures Radiology/Procedures Chest x-ray interpreted by myself at 2150 PM: No acute infiltrate, no pleural effusion, no pneumothorax. Course & Med Decision Making Course & Med Decision Making Evaluated patient upon arrival. Dosed with Pepcid IV and morphine IV. Patient does have risk factors however for cardiac etiology. Last admission was in December 2016 for chest pain. Differential diagnosis for chest pain includes but is not limited to: Pericarditis, myocarditis, endocarditis, pneumothorax, pneumonia, aortic dissection, esophageal spasm, esophagitis, peptic ulcer disease, acute coronary syndrome, mediastinitis, Boerhaave syndrome, musculoskeletal chest wall pain, costochondritis, intercostal strain, rib fracture, pulmonary contusion, pneumonitis, pleural effusion, pericardial effusion, pericardial tamponode, and pleurisy. AT 2240 pm: Pain improved after morphine. SBP >50; Nitropaste to chest wall. ASA chew. Admit obsv. MARIANO score for NSTEMI: Age 65: Yes+1 3 CAD risk factors: Family history of CAD, hypertension, hypercholesterolemia, diabetes, family history of CAD, or current smoker: Yes+1 Known CAD (stenosis 50%: No=0 ASA use in past 7 days: No=0 Severe angina ( 2 episodes in 24 hrs): No=[address] changes 0.5m: No=0 Positive cardiac marker: No=0 Score: 2 Spoke with Hospitalist, Dr Wallis and she accepted patient for admission; observation to cardiac tele with r/o orders. Cardiology consultation placed for am. I have spoken with the patient and/or caregivers. I have explained the patient' s condition, diagnosis and treatment plan based on the information available to me at this time. I have answered the patient's and/or caregiver's questions and addressed any concerns. The patient and/or caregivers have as good an understanding of the patient's diagnosis, condition and treatment plan as can be expected at this point. The patient has been stabilized within the capability of the emergency department. The patient will be transported for further care and management or will be moved to an observation or inpatient service. I have communicated with the staff or medical practitioner taking over this patient's care. Dragon Disclaimer Dragon Disclaimer This electronic medical record was generated, in whole or in part, using a voice recognition dictation system. Departure Departure Impression: Primary Impression: Chest pain Additional Impression: Epigastric pain Disposition: ADMITTED INPATIENT Admitting Physician: Other Condition: STABLE Referrals: JILL OBANDO MD (PCP) Problem Qualifiers Primary Impression: Chest pain Chest pain type: unspecified Qualified Codes: R07.9 - Chest pain, unspecified JACK MASTERS MD Jul 26, 2017 21:19
[2017-07-26] MEDS ORDERED: MORPHINE SULFATE 2 MG/ML DISP.SYRIN. IV ONE (21:30)
[2017-07-26] MEDS ORDERED: MORPHINE SULFATE 4 MG/ML DISP.SYRIN. IV ONE (21:30)
[2017-07-26] MEDS ORDERED: FAMOTIDINE 20 MG/2 ML VIAL IVP ONE (21:30)
[2017-07-26 21:33] LABS: BASO # 0.1 x10^3/uL (0.0-0.2); BASO % 1 % (0-3); EOS % 3 % (0-3); HEMATOCRIT 40.4 % (36.0-47.0); HEMOGLOBIN 13.5 g/dL (12.0-15.5); LYMPH # 1.8 x10^3/uL (1.0-4.8); LYMPH % 18 % (24-48); MEAN CORPUSCULAR HEMOGLOBIN 30 pg (25-35); MEAN CORPUSCULAR HGB CONC 34 g/dL (31-37); MEAN CORPUSCULAR VOLUME 89 fL (79-100); MONO % 8 % (0-9); NEUT % 71 % (31-73); PLATELET COUNT 327 x10^3/uL (140-400); RED BLOOD COUNT 4.55 x10^6/uL (3.50-5.40); RED CELL DISTRIBUTION WIDTH 14.5 % (11.5-14.5); WHITE BLOOD COUNT 9.9 x10^3/uL (4.0-11.0)
[2017-07-26 21:49] LABS: CALCIUM 9.8 mg/dL (8.5-10.1); CREATININE 0.8 mg/dL (0.6-1.0); GFR 67.7; POTASSIUM 3.4 mmol/L (3.5-5.1)
[2017-07-26 22:01] LABS: CKMB MASS 0.8 ng/mL (0.0-3.6); CREATINE KINASE 51 U/L (26-192)
[2017-07-26] MEDS ORDERED: ASPIRIN CHEWABLE 81 MG TABLET. PO ONE (22:45)
[2017-07-26] MEDS ORDERED: ONDANSETRON PF 4 MG/2 ML VIAL. IV PRN (22:45)
[2017-07-26] MEDS ORDERED: NITROGLYCERIN SUBLINGUAL 0.4 MG BOTTLE OF 25. SL PRN (22:45)
[2017-07-26] MEDS ORDERED: MORPHINE SULFATE 4 MG/ML DISP.SYRIN. IV PRN (22:45)
[2017-07-26] MEDS ORDERED: NITROGLYCERIN OINT 1 GM PACKET. TP ONE ×2 (22:45→23:00)
[2017-07-26] MEDS ORDERED: ALPRAZolam 0.25 MG TABLET PO ONE (22:45)
[2017-07-27 01:19] VITALS: BP 165/84
[2017-07-27 02:04] VITALS: BP 162/80
[2017-07-27 03:08] VITALS: BP 156/59
--- NOTE | 2017-07-27 06:09 | EKG ---
[facility] [address] [place] [address] Test Date: 2017-07-26 Test Time: 20:22:54 Pat Name: ANIA HUNT Department: Room: 258 1 Gender: F Senior Report Developer: : [id number] Requested By: JACK MASTERS Order Number: [id number] Reading MD: Allen King Measurements Intervals [place] Rate: 94 P: -24 [place]: 186 QRS: -12 QRSD: 106 T: 20 QT: 346 QTc: 438 Interpretive Statements SINUS RHYTHM Electronically Signed On 07-27-2017 11:00:19 CDT by Allen King
[2017-07-27 07:00] VITALS: BP 147/65
--- NOTE | 2017-07-27 07:29 | RAD ---
Exam performed: One view chest. Indication: Chest pain today Date of Service: 07/26/2017 11:17 PM Comparison: One view chest from 01/04/17. Single AP upright portable view chest findings: Cardiomediastinal silhouette is within upper limits of normal, however stable. Ectatic tortuous aorta. There is a moderate-sized hiatal hernia. Linear opacity in the left lung base likely scarring or atelectasis. Prominent interstitial markings in both lungs is probably chronic. There are degenerative changes about shoulders bilaterally. Impression: Stable one view chest with chronic prominent interstitial markings and linear left basilar atelectasis or scarring. Moderate hiatal hernia
[2017-07-27 10:30] VITALS: BP 142/76
[2017-07-27] MEDS ORDERED: AMLO5TAB2 PO (10:56)
--- NOTE | 2017-07-27 11:01 | PDOC2 ---
CARDIOLOGY CONSULT NOTE CHEIF COMPLAINT: Epigastric pain Problems: HPI: 87 y.o woman well known to us from last visit presents for epigastric pain. Was eating steak/tomatoes and felt epigastric pain. Similar to her prior GERD symptoms. Previously admitted and had negative echo and MPI. Denies any cardiac symptoms at home. No chest pain, no angina, no dypsnea. Working well at home and doing things such as dusting bedrooms and walking up and down stairs without symptoms. No other hospitalizations. PMHX: DLP HTN Anxiety SOCHX: No alcohol, tob or illicits. FAMHX: NC CURRENT MEDS: Current Medications Medications (Trade) Dose Ordered Sig/Jossie Start Time Stop Time Status Last Admin Dose Admin Alprazolam (Xanax) 0.25 mg 1X ONCE 07/26/17 22:45 07/26/17 22:46 DC 07/26/17 22:45 0.25 MG Aspirin (Children'S Aspirin) 324 mg 1X ONCE 07/26/17 22:45 07/26/17 22:46 DC 07/26/17 22:45 324 MG Famotidine (Pepcid) 20 mg 1X ONCE 07/26/17 21:30 07/26/17 21:31 DC 07/26/17 21:56 20 MG Morphine Sulfate 2 mg PRN Q2HR PRN 07/26/17 22:45 07/27/17 22:44 Nitroglycerin (Nitro-Bid Oint) 1 inch 1X ONCE 07/26/17 23:00 07/26/17 23:01 DC Nitroglycerin (Nitrostat) 0.4 mg PRN Q5MIN PRN 07/26/17 22:45 07/27/17 22:44 Ondansetron HCl (Zofran) 4 mg PRN Q8HRS PRN 07/26/17 22:45 07/27/17 22:44 07/26/17 23:49 4 MG Sodium Chloride 1,000 ml @ 100 mls/hr Q10H 07/26/17 21:17 07/27/17 07:16 DC 07/26/17 21:57 100 MLS/HR ALLERGIES: Allergies Coded Allergies Type Severity Reaction Last Updated Verified egg Allergy Intermediate 01/05/17 Yes ROS: Negative for 09/10 systems reviewed unless otherwise noted above in HPI. PHYSICAL EXAM: Vital Signs: Vital Signs Date Time Temp Pulse Resp B/P (MAP) Pulse Ox O2 Delivery O2 Flow Rate FiO2 07/27/17 08:00 Room Air 07/27/17 07:00 97.7 69 18 147/65 (92) 94 97.7 Physical Exam: GEN.: No apparent distress. Alert and oriented. HEENT: Head is normocephalic, atraumatic NECK: Supple. LUNGS: Clear to auscultation. HEART: RRR, S1, S2 present. Peripheral pulses intact ABDOMEN: Soft, nontender. Positive bowel sounds. EXTREMITIES: Without any cyanosis. NEUROLOGIC: Normal speech, normal tone PSYCHIATRIC: Normal affect, normal mood. SKIN: No ulcerations DIAGNOSTIC TESTING: Trop negative x 3. EKG unremarkable. prior echo/MPI in 12/2016 wnl. CXR with moderate hiatal hernia ASSESSMENT: 1. Non-cardiac chest pain 2. HTN PLAN: 1. Continue home meds of Norvasc 10mg daily 2. No further CV testing. 3. Treat GERD/ hiatal hernia THanks for consult. PLs call q questions. AMADA REYNOLDS MD Jul 27, 2017 11:01
[2017-07-27] MEDS ORDERED: ALPRAZolam 0.25 MG TABLET PO PRN (12:15)
[2017-07-27] MEDS ORDERED: amLODIPine BESYLATE 10 MG TABLET PO SCH (12:45)
[2017-07-27 14:30] VITALS: BP 132/68
[2017-07-27] MEDS ORDERED: AMLO10TA2 PO (14:59)
[2017-07-27] MEDS ORDERED: PANT40TA5 PO (15:03)
--- NOTE | 2017-07-27 18:14 | SSS ---
ADMIT DATE: 07/27/2017 CHIEF COMPLAINT: Epigastric pain. HISTORY OF PRESENT ILLNESS: The patient is an 87-year-old woman with recent admission for chest pain who presented to the Emergency Room with midsternal chest discomfort. She actually described it to the Emergency Room physician as "acid reflux." This commenced at about 6:00 p.m. after eating steak and tomatoes. She describes the pain as sharp. She felt difficulties breathing and some nausea; however, no vomiting. Pain did not radiate. She had had similar problems before, but this time pain actually was so severe that she decided to come to the Emergency Room. Of note, she had been admitted at the hospital in December of this year with chest pain and had undergone a complete cardiac workup, which was negative. She had been discharged on blood pressure as well as cholesterol medications, which she has not gotten refilled at this time. PAST MEDICAL HISTORY: Hypertension, hypercholesterolemia, gastroesophageal reflux disease, anxiety, hiatal hernia. FAMILY HISTORY: No heart issues known. SOCIAL HISTORY: No toxic habits. ALLERGIES: LISINOPRIL. MEDICATIONS: MAR reconciled with home medications. REVIEW OF SYSTEMS: Pain is much improved, although she still has same sensation in the subxiphoid area. Rest of organ system review is negative. PHYSICAL EXAMINATION: VITAL SIGNS: From today show a blood pressure of 132/68, heart rate of 75, respiratory rate at 18. Of note, at admission, her blood pressure had been 184/82 with a pulse of 87. GENERAL: This is a well-nourished 87-year-old sprite woman, alert and oriented, in no acute distress. LUNGS: Clear. HEART: Has regular rate and rhythm. ABDOMEN: Has positive bowel sounds, no tenderness to palpation including epigastrium. EXTREMITIES: Show no edema. SKIN: Warm, soft and dry. LABORATORY DATA: CBC with a WBC of 9.9, hemoglobin 13.5, platelets of 327. Chemistries with a BUN and creatinine of 13 and 0.8, potassium at 3.4. Rest of electrolytes within normal. Troponins negative x 4. ASSESSMENT AND PLAN: The patient is an 87-year-old woman who presented with what sounds like gastroesophageal reflux disease/reflux disease, potentially esophageal spasms. She is not on regular proton pump inhibitor at this time. Discussed with her that she should be on a proton pump inhibitor or at least have Tums available to help her immediate needs. Nutrition was discussed with her as well. At admission, she was noted to have hypertensive urgency, which was more than likely due to her not taking blood pressure medications prescribed in December. She states that she left a message with her PCP and "they never got back to me," and she therefore did not get her prescription refilled. She was given a 30-day script with advice to talk to her primary care physician if need be to arrange for a visit to continue medication regimen. The patient was seen by Cardiology during this visit as well and was deemed safe for discharge. DISCHARGE DATE: 07/27/2017 DISCHARGE DIAGNOSIS: Gastroesophageal reflux disease. DISCHARGE DISPOSITION: To home. DISCHARGE CONDITION: Improved. DISCHARGE MEDICATIONS: Same as at admit. DISCHARGE INSTRUCTIONS: The patient will follow up with her primary care physician in 1-2 weeks. ZAKI BELL MD DR: UR/nts JOB#: [id number] / [id number] JILL Jacobson MD MTDD
== END 2017-07-27 16:00 | disposition home or self-care (01) ==
LOC: ER 20:04 → 2 SOUTH 22:40
PROVIDERS: ADMIT Internal Medicine Hematology & Oncology; ATTEND Internal Medicine Hematology & Oncology
DX: R07.89 Other chest pain (principal); I10 Essential (primary) hypertension; K44.9 Diaphragmatic hernia without obstruction or gangrene; K21.9 Gastro-esophageal reflux disease without esophagitis; E78.00 Pure hypercholesterolemia, unspecified; F41.9 Anxiety disorder, unspecified; I16.0 Hypertensive urgency; Z90.49 Acquired absence of other specified parts of digestive tract
CPT/HCPCS: 36415; 71010; 80048; 82550; 82553; 83690; 83880; 84484; 85025; 93005; 96361; 96374; 96375; 99285; G0378; J2405; J7030; S0028; G0379

== ENCOUNTER 2017-09-25 13:09 | Observation (INO) | payer MEDICARE ==
[~2017-09-25] VITALS: Ht 152.4 cm; Wt 55.3 kg
[~2017-09-25 13:09] MED LIST changes: +AMLO10TA2 PO; +AMLO5TAB2 PO
--- NOTE | 2017-09-25 14:06 | EKG ---
[facility] [address] [place] [address] Test Date: 2017-09-25 Test Time: 14:02:06 Pat Name: ANIA HUNT Department: Room: Gender: F Rental Clerk Tool And Equipment: : 1930 Requested By: GUY HINKLE Order Number: [id number] Reading MD: Allen King Measurements Intervals [place] Rate: 98 P: 27 [place]: 188 QRS: -15 QRSD: 100 T: 14 QT: 346 QTc: 444 Interpretive Statements SINUS RHYTHM Electronically Signed On 09-28-2017 8:22:08 CDT by Allen King
[2017-09-25] MEDS ORDERED: MECLIZINE HCL 12.5 MG TABLET. PO ONE (14:15)
[2017-09-25] MEDS ORDERED: IV NORMAL SALINE 500ML BAG 500 ML IV ONE (14:15)
[2017-09-25 14:16] LABS: BASO % 0 % (0-3); EOS % 2 % (0-3); HEMATOCRIT 37.8 % (36.0-47.0); HEMOGLOBIN 12.9 g/dL (12.0-15.5); LYMPH % 10 % (24-48); MEAN CORPUSCULAR HEMOGLOBIN 30 pg (25-35); MEAN CORPUSCULAR HGB CONC 34 g/dL (31-37); MEAN CORPUSCULAR VOLUME 87 fL (79-100); MONO % 7 % (0-9); NEUT % 81 % (31-73); PLATELET COUNT 374 x10^3/uL (140-400); RED BLOOD COUNT 4.35 x10^6/uL (3.50-5.40); RED CELL DISTRIBUTION WIDTH 14.1 % (11.5-14.5)
--- NOTE | 2017-09-25 14:18 | PHYS DOC ---
Past Medical History Past Medical History: Anxiety, GERD, High Cholesterol, Hypertension, Other Additional Past Medical Histor: hiatal hernia, VERTIGO Past Surgical History: Appendectomy Additional Past Surgical Histo: right wrist Alcohol Use: None Drug Use: None Adult General Chief Complaint Chief Complaint: ANXIETY/PANIC ATTACK HPI HPI 87-year-old female presenting to the emergency department today with vertigo this started about an hour and a half ago. She reports having history of vertigo. She was at the [facility] when this happened. She has a history of high blood pressure and high cholesterol. She denies a history of stroke. She denies slurred speech vision changes or unilateral weakness. She denies being on anticoagulation her having recent trauma. Review of systems is negative for nausea vomiting fevers chills chest pain shortness of breath. She denies abdominal pain. All other review of systems is negative unless otherwise noted in history of present illness. ED course: 79-year-old female presenting to the emergency department vertigo. On arrival the patient is afebrile with mild tachycardia and hypertension pressure. Pertinent physical examination findings show normal neurologic exam. Hints testing performed. Head impulse shows overshooting, nystagmus his lateral rotatory, there is no skew. I discussed the case with Dr. Fitzpatrick who recommends MRI. Meclizine given for vertigo. Blood work obtained along with EKG. EKG shows sinus rhythm with a mildly tachycardic rate. ST segments congruent. Not suggestive of ACS. I reviewed the EKG. Chest x-ray obtained and reviewed by myself shows no acute pathology. head ct neg for acute path. labs nl. Pt refuses MRI but is willing to be hospitalized for neuro consultation. We may be able to sedate her for MRI as well. symptoms improved with meclizine. Pt admitted to [facility] with Nanette on Neuro consultation. Review of Systems Review of Systems SEE ABOVE. Current Medications Current Medications Current Medications Medications (Trade) Dose Ordered Sig/Jossie Start Time Stop Time Status Last Admin Dose Admin Meclizine HCl (Antivert) 25 mg 1X ONCE 09/25/17 14:15 09/25/17 14:16 DC 09/25/17 14:18 25 MG Sodium Chloride 500 ml @ 500 mls/hr 1X ONCE 09/25/17 14:15 09/25/17 15:14 DC 09/25/17 14:21 500 MLS/HR Allergies Allergies Allergies Coded Allergies Type Severity Reaction Last Updated Verified lisinopril Allergy Intermediate 09/25/17 Yes Physical Exam Physical Exam SEE ABOVE Constitutional: Well developed, well nourished, patient appears nauseated. Not in acute distress. HENT: Normocephalic, atraumatic, bilateral external ears normal, oropharynx moist, no oral exudates, nose normal. [] Eyes: PERRLA, EOMI, conjunctiva normal, no discharge. [] Neck: Normal range of motion, no tenderness, supple, no stridor. [] Cardiovascular:Heart rate regular rhythm, no murmur [] Lungs & Thorax: Bilateral breath sounds clear to auscultation [] Abdomen: Bowel sounds normal, soft, no tenderness, no masses, no pulsatile masses. [] Skin: Warm, dry, no erythema, no rash. [] Back: No tenderness, no CVA tenderness. [] Extremities: No tenderness, no cyanosis, no clubbing, ROM intact, no edema. [] Neurologic: Mental status: Awake oriented and alert x3 Cranial nerves: Extraocular movements intact, eyebrows ramiro bilaterally smile symmetric, uvula elevation, shoulder shrug intact, tongue protrusion normal DTRs: 2+ Sensation: equal and normal in all extremities Strength: 5/5 in upper and lower extremities bilaterally Psychologic: Affect normal, judgement normal, mood normal. [] Current Patient Data Vital Signs Vital Signs Date Time Temp Pulse Resp B/P (MAP) Pulse Ox O2 Delivery O2 Flow Rate FiO2 09/25/17 15:00 102 22 174/76 (108) 95 Room Air 09/25/17 13:10 98.3 98.3 Lab Values Laboratory Tests Test 09/25/17 13:55 09/25/17 14:55 White Blood Count 10.0 x10^3/uL (4.0-11.0) Red Blood Count 4.35 x10^6/uL (3.50-5.40) Hemoglobin 12.9 g/dL (12.0-15.5) Hematocrit 37.8 % (36.0-47.0) Mean Corpuscular Volume 87 fL (79-100) Mean Corpuscular Hemoglobin 30 pg (25-35) Mean Corpuscular Hemoglobin Concent 34 g/dL (31-37) Red Cell Distribution Width 14.1 % (11.5-14.5) Platelet Count 374 x10^3/uL (140-400) Neutrophils (%) (Auto) 81 % (31-73) H Lymphocytes (%) (Auto) 10 % (24-48) L Monocytes (%) (Auto) 7 % (0-9) Eosinophils (%) (Auto) 2 % (0-3) Basophils (%) (Auto) 0 % (0-3) Neutrophils # (Auto) 8.1 x10^3uL (1.8-7.7) H Lymphocytes # (Auto) 1.0 x10^3/uL (1.0-4.8) Monocytes # (Auto) 0.7 x10^3/uL (0.0-1.1) Eosinophils # (Auto) 0.2 x10^3/uL (0.0-0.7) Basophils # (Auto) 0.0 x10^3/uL (0.0-0.2) Sodium Level 137 mmol/L (136-145) Potassium Level 3.9 mmol/L (3.5-5.1) Chloride Level 99 mmol/L (98-107) Carbon Dioxide Level 28 mmol/L (21-32) Anion Gap 10 (6-14) Blood Urea Nitrogen 15 mg/dL (7-20) Creatinine 0.8 mg/dL (0.6-1.0) Estimated GFR (Cockcroft-Gault) 67.7 Glucose Level 113 mg/dL (70-99) H Calcium Level 9.6 mg/dL (8.5-10.1) Total Bilirubin 0.4 mg/dL (0.2-1.0) Direct Bilirubin 0.1 mg/dL (0.0-0.2) Aspartate Amino Transferase (AST) 17 U/L (15-37) Alanine Aminotransferase (ALT) 17 U/L (14-59) Alkaline Phosphatase 104 U/L (46-116) Troponin I Quantitative < 0.017 ng/mL (0.000-0.055) Total Protein 7.6 g/dL (6.4-8.2) Albumin 3.9 g/dL (3.4-5.0) Lipase 141 U/L (73-393) Urine Collection Type Unknown Urine Color Yellow Urine Clarity Clear Urine pH 7.0 Urine Specific [place] 1.015 Urine Protein Negative mg/dL (NEG-TRACE) Urine Glucose (UA) Negative mg/dL (NEG) Urine Ketones (Stick) 15 mg/dL (NEG) Urine Blood Negative (NEG) Urine Nitrite Negative (NEG) Urine Bilirubin Negative (NEG) Urine Urobilinogen Dipstick 0.2 mg/dL (0.2 mg/dL) Urine Leukocyte Esterase Trace (NEG) Urine RBC 1-2 /HPF (0-2) Urine WBC 1-4 /HPF (0-4) Urine Squamous Epithelial Cells Few /LPF Urine Transitional Epithelial Cells Few /LPF Urine Bacteria 0 /HPF (0-FEW) Urine Hyaline Casts Moderate /HPF Urine Mucus Mod /LPF Laboratory Tests 09/25/17 13:55 Laboratory Tests 09/25/17 13:55 EKG EKG [] Radiology/Procedures Radiology/Procedures [] Course & Med Decision Making Course & Med Decision Making Pertinent Labs and Imaging studies reviewed. (See chart for details) [] Dragon Disclaimer Dragon Disclaimer This electronic medical record was generated, in whole or in part, using a voice recognition dictation system. Departure Departure Impression: Primary Impression: Vertigo Disposition: ADMITTED INPATIENT Admitting Physician: Cecilia Bravo Condition: GUARDED Referrals: JILL WEINBERG MD (PCP) Patient Instructions: Vertigo GUY HINKLE MD Sep 25, 2017 14:18
[2017-09-25 14:19] LABS: CALCIUM 9.6 mg/dL (8.5-10.1); CREATININE 0.8 mg/dL (0.6-1.0); GFR 67.7; POTASSIUM 3.9 mmol/L (3.5-5.1)
[2017-09-25 14:24] LABS: ALBUMIN 3.9 g/dL (3.4-5.0); DIRECT BILIRUBIN 0.1 mg/dL (0.0-0.2); TOTAL BILIRUBIN 0.4 mg/dL (0.2-1.0); TOTAL PROTEIN 7.6 g/dL (6.4-8.2)
[2017-09-25 15:15] LABS: BILIRUBIN,URINE NEGATIVE (NEG); GLUCOSE,URINE NEGATIVE (NEG); NITRITE,URINE NEGATIVE (NEG); PROTEIN,URINE NEGATIVE (NEG-TRACE); UROBILINOGEN,URINE 0.2 mg/dL (0.2 mg/dL)
--- NOTE | 2017-09-25 15:30 | RAD ---
CT HEAD WITHOUT CONTRAST History: vertigo Comparison: CT head dated 10/05/2015. Procedure: Axial images are obtained of the head from the skull base through the vertex without IV contrast. Findings: Mild cerebral and cerebellar atrophy. Mild periventricular hypoattenuation is nonspecific but likely related to chronic small vessel ischemic disease. Baker-white matter differentiation is preserved. The ventricles and sulci are normal for the patient's age.. No mass-effect, midline shift, hemorrhage or obvious acute infarction is identified. Basilar cisterns are patent. Bone windows demonstrate no significant calvarial abnormality.The visualized paranasal sinuses appear clear. Mastoid air cells are well aerated. IMPRESSION: 1. No acute intracranial abnormality. 2. Mild cerebral and cerebellar atrophy. Mild chronic small vessel ischemic disease. PQRS Compliance Statement: One or more of the following individualized dose reduction techniques were utilized for this examination: 1. Automated exposure control 2. Adjustment of the mA and/or kV according to patient size 3. Use of iterative reconstruction technique
[2017-09-25 15:35] LABS: BACTERIA,URINE 0 /HPF (0-FEW); SQUAMOUS EPITHELIAL CELL,UR FEW /LPF
[2017-09-25] MEDS ORDERED: ONDANSETRON PF 4 MG/2 ML VIAL. IV PRN ×2 (16:00→16:30)
[2017-09-25] MEDS ORDERED: MORPHINE SULFATE 2 MG/ML DISP.SYRIN. IV PRN (16:00)
[2017-09-25] MEDS ORDERED: ZOLPIDEM 5 MG TABLET. PO PRN (16:30)
[2017-09-25] MEDS ORDERED: diphenhydrAMINE HCL 25 MG CAPSULE PO PRN (16:30)
[2017-09-25] MEDS ORDERED: KETOROLAC 15 MG/ML VIAL. IV PRN (16:30)
[2017-09-25] MEDS ORDERED: LABETALOL 20 MG/4 ML DISP.SYRIN. IVP PRN (16:30)
[2017-09-25] MEDS ORDERED: HYDROcodone/APAP 5/325MG 1 TAB TABLET PO PRN (16:30)
[2017-09-25] MEDS ORDERED: MECLIZINE HCL 12.5 MG TABLET. PO PRN (16:30)
--- NOTE | 2017-09-25 16:32 | RAD ---
CHEST AP ONLY Clinical Indication: vertigo Comparison: Chest radiograph dated 07/26/2017 Findings: Large hiatal hernia. Normal lung volume. Remote granulomatous disease. Linear left lower lung zone opacities likely related to atelectasis versus scarring. No focal consolidation. Stable pulmonary vasculature. No pleural effusion or pneumothorax. The cardiomediastinal silhouette is stable. Stable tortuous and atherosclerotic thoracic aorta. No acute osseous abnormality. IMPRESSION: 1. No focal consolidation. 2. Large hilar hernia.
--- NOTE | 2017-09-25 16:36 | PDOC1 ---
History and Physical Date of Admission Date of Admission DATE: 09/25/17 TIME: 16:28 Identification/Chief Complaint Chief Complaint dizzy in [facility] Problems: Source Source: Caregiver, Chart review, Patient History of Present Illness History of Present Illness 87 y.o female who lives at home alone and uses cane prn, [place] and had severe [place]igo, needed to grab hold of things, arrived in ER with eyes closed. better with a single dose of 25 mg meclizine, Neuro consulted by ER, advised MRI, pt does not want MRI despite me offering mild sedative, CLaims had that before and "did not work," HAd similar sxs 2015 during the care of Dr. Daren Helton, was dcd on MEclizine to home, She did not have meclizine today at [facility], Was about to be sent home by ER but pt and friend claims " she is not ready to go home like this today". PCP Dr. Obando HAs some upper back pain worse, recently when she tried to do something with her trash can, garage etc, HAs seen our physiatry in past,. All labs ok VS on high side, did not take AM antihypertensives today. Admit as oBS Pt admits to anxiety, takes low dose xanax at home Also moves intermittently her back during my interaction bec of pain Morphine just given by ER Past Medical History Cardiovascular: HTN, Hyperlipidemia CENTRAL NERVOUS SYSTEM: Vertigo GI: Diverticulosis, GERD, Peptic Ulcer disease Heme/Onc: Anemia NOS Psych: Anxiety Musculoskeletal: low back pain, Osteoarthritis, Other Rheumatologic: No pertinent hx Infectious disease: No pertinent hx Renal/: No pertinent hx Endocrine: Osteoporosis Past Surgical History Past Surgical History: Other Family History Family History: Other Social History Smoke: No ALCOHOL: none Drugs: None Current Problem List Problem List Problems Medical Problems: (1) Vertigo Status: Acute Problems: Current Medications Current Medications Current Medications Meclizine HCl (Antivert) 25 mg 1X ONCE PO Last administered on 09/25/17 14: 18; Start 09/25/17 at 14:15; Stop 09/25/17 at 14:16; Status DC Sodium Chloride 500 ml @ 500 mls/hr 1X ONCE IV Last administered on 14:21; Start 09/25/17 at 14:15; Stop 10/29/17 at 15:14; Status DC Ondansetron HCl (Zofran) 4 mg PRN Q8HRS PRN IV NAUSEA/VOMITING Last administered on 09/25/17 16:05; Start 09/25/17 at 16:00; Stop 09/26/17 at 15 :59 Morphine Sulfate 2 mg PRN Q2HR PRN IV PAIN Last administered on 09/25/17 16: 06; Start 09/25/17 at 16:00; Stop 09/26/17 at 15:59 Sodium Chloride 1,000 ml @ 100 mls/hr Q10H IV ; Start 09/25/17 at 15:52; Stop 09/26/17 at 15:51 Active Scripts Active Pantoprazole Sodium 40 Mg Tablet.dr 40 Mg PO DAILYAC Amlodipine Besylate 10 Mg Tablet 10 Mg PO DAILY Xanax (Alprazolam) 0.25 Mg Tablet 1 Tab PO PRN Q8HRS PRN Reported Iron (Ferrous Sulfate, Dried) Unknown Strength Tablet.er Unknown Dose PO Super B Complex (Vitamin B Complex & Vit C No.4) Unknown Strength Tablet Unknown Dose PO Garlic Unknown Strength Capsule Unknown Dose PO Allergies Allergies: Coded Allergies: lisinopril (Verified Allergy, Intermediate, 09/25/17) cough ROS Review of System back pain, dizzy, all else is neg General: No: Chills, Night Sweats, Fatigue, Malaise, Appetite, Other PSYCHOLOGICAL ROS: YES: Anxiety Eyes: No Blurry vision, No Decreased vision, No Double vision, No Dry eyes, No Excessive tearing, No Eye Pain, No Itchy Eyes, No Loss of vision, No Photophobia , No Scotomata, No Uses contacts, No Uses glasses, No Other HEENT: YES: Vertigo ALLERGY AND IMMUNOLOGY: No: Hives, Insect Bite Sensitivity, Itchy/Watery Eyes, Nasal Congestion, Post Nasal Drip, Seasonal Allergies, Other Hematological and Lymphatic: No: Bleeding Problems, Blood Clots, Blood Transfusions, Brusing, Night Sweats, Pallor, Swollen Lymph Nodes, Other ENDOCRINE: No: Breast Changes, Galactorrhea, Hair Pattern Changes, Hot Flashes , Malaise/lethargy, Mood Swings, Palpitations, Polydipsia/polyuria, Skin Changes , Temperature Intolerance, Unexpected Weight Changes, Other Breast: No New/Changing Breast Lumps, No Nipple changes, No Nipple discharge, No Other Respiratory: No: Cough, Hemoptysis, Orthopnea, Pleuritic Pain, Shortness of breath, SOB with excertion, Sputum Changes, Stridor, Tachypnea, Wheezing, Other Cardiovascular: No Chest Pain, No Palpitations, No Orthopnea, No Paroxysmal Noc. Dyspnea, No Edema, No Lt Headedness, No Other Gastrointestinal: No Nausea, No Vomiting, No Abdominal Pain, No Diarrhea, No Constipation, No Melena, No Hematochezia, No Other Genitourinary: No Dysuria, No Frequency, No Incontinence, No Hematuria, No Retention, No Discharge, No Urgency, No Pain, No Flank Pain, No Other, No , No , No , No , No , No , No Musculoskeletal: No Gait Disturbance, No Joint Pain, No Joint Stiffness, No Joint Swelling, No Muscle Pain, No Muscular Weakness, No Pain In:, No Swelling In:, No Other Neurological: No Behavorial Changes, No Bowel/Bladder ControlChng, No Confusion , No Dizziness, No Gait Disturbance, No Headaches, No Impaired Coord/balance, No Memory Loss, No Numbness/Tingling, No Seizures, No Speech Problems, No Tremors, No Visual Changes, No Weakness, No Other Skin: No Dry Skin, No Eczema, No Hair Changes, No Lumps, No Mole Changes, No Mottling, No Nail Changes, No Pruritus, No Rash, No Skin Lesion Changes, No Other, No Acne Physical Exam General: Alert, Oriented X3, Cooperative, No acute distress HEENT: Atraumatic, PERRLA, EOMI Lungs: Clear to auscultation, Normal air movement Heart: S1S2, RRR, no thrills, no rubs, no gallops, no murmurs Cardiovascular: S1, S2 Breasts: Normal, Rt breast nml w/o mass, Lt breast nml w/o mass, Nipples normal Abdomen: Normal bowel sounds, Soft, No tenderness, No hepatosplenomegaly, No masses Rectal Exam: not examined PELVIC: Nml ext genitalia Extremities: No clubbing, No cyanosis, No edema, Normal pulses, No tenderness/ swelling Skin: No rashes, No breakdown, No significant lesion Neuro: Normal gait, Normal speech, Strength at 5/5 X4 ext, Normal tone, Sensation intact, Cranial nerves 3-12 NL, Reflexes 2+ Psych/Mental Status: Mental status NL, Mood NL Vitals Vitals Vital Signs Date Time Temp Pulse Resp B/P (MAP) Pulse Ox O2 Delivery O2 Flow Rate FiO2 09/25/17 16:06 21 95 Room Air 09/25/17 13:10 98.3 102 184/86 (118) 98.3 Labs Labs Laboratory Tests Test 09/25/17 13:55 09/25/17 14:55 White Blood Count 10.0 x10^3/uL (4.0-11.0) Red Blood Count 4.35 x10^6/uL (3.50-5.40) Hemoglobin 12.9 g/dL (12.0-15.5) Hematocrit 37.8 % (36.0-47.0) Mean Corpuscular Volume 87 fL (79-100) Mean Corpuscular Hemoglobin 30 pg (25-35) Mean Corpuscular Hemoglobin Concent 34 g/dL (31-37) Red Cell Distribution Width 14.1 % (11.5-14.5) Platelet Count 374 x10^3/uL (140-400) Neutrophils (%) (Auto) 81 % (31-73) Lymphocytes (%) (Auto) 10 % (24-48) Monocytes (%) (Auto) 7 % (0-9) Eosinophils (%) (Auto) 2 % (0-3) Basophils (%) (Auto) 0 % (0-3) Neutrophils # (Auto) 8.1 x10^3uL (1.8-7.7) Lymphocytes # (Auto) 1.0 x10^3/uL (1.0-4.8) Monocytes # (Auto) 0.7 x10^3/uL (0.0-1.1) Eosinophils # (Auto) 0.2 x10^3/uL (0.0-0.7) Basophils # (Auto) 0.0 x10^3/uL (0.0-0.2) Sodium Level 137 mmol/L (136-145) Potassium Level 3.9 mmol/L (3.5-5.1) Chloride Level 99 mmol/L (98-107) Carbon Dioxide Level 28 mmol/L (21-32) Anion Gap 10 (6-14) Blood Urea Nitrogen 15 mg/dL (7-20) Creatinine 0.8 mg/dL (0.6-1.0) Estimated GFR (Cockcroft-Gault) 67.7 Glucose Level 113 mg/dL (70-99) Calcium Level 9.6 mg/dL (8.5-10.1) Total Bilirubin 0.4 mg/dL (0.2-1.0) Direct Bilirubin 0.1 mg/dL (0.0-0.2) Aspartate Amino Transf (AST/SGOT) 17 U/L (15-37) Alanine Aminotransferase (ALT/SGPT) 17 U/L (14-59) Alkaline Phosphatase 104 U/L (46-116) Troponin I Quantitative < 0.017 ng/mL (0.000-0.055) Total Protein 7.6 g/dL (6.4-8.2) Albumin 3.9 g/dL (3.4-5.0) Lipase 141 U/L (73-393) Urine Collection Type Unknown Urine Color Yellow Urine Clarity Clear Urine pH 7.0 Urine Specific [place] 1.015 Urine Protein Negative mg/dL (NEG-TRACE) Urine Glucose (UA) Negative mg/dL (NEG) Urine Ketones (Stick) 15 mg/dL (NEG) Urine Blood Negative (NEG) Urine Nitrite Negative (NEG) Urine Bilirubin Negative (NEG) Urine Urobilinogen Dipstick 0.2 mg/dL (0.2 mg/dL) Urine Leukocyte Esterase Trace (NEG) Urine RBC 1-2 /HPF (0-2) Urine WBC 1-4 /HPF (0-4) Urine Squamous Epithelial Cells Few /LPF Urine Transitional Epithelial Cells Few /LPF Urine Bacteria 0 /HPF (0-FEW) Urine Hyaline Casts Moderate /HPF Urine Mucus Mod /LPF Laboratory Tests Test 09/25/17 13:55 09/25/17 14:55 White Blood Count 10.0 x10^3/uL (4.0-11.0) Red Blood Count 4.35 x10^6/uL (3.50-5.40) Hemoglobin 12.9 g/dL (12.0-15.5) Hematocrit 37.8 % (36.0-47.0) Mean Corpuscular Volume 87 fL (79-100) Mean Corpuscular Hemoglobin 30 pg (25-35) Mean Corpuscular Hemoglobin Concent 34 g/dL (31-37) Red Cell Distribution Width 14.1 % (11.5-14.5) Platelet Count 374 x10^3/uL (140-400) Neutrophils (%) (Auto) 81 % (31-73) Lymphocytes (%) (Auto) 10 % (24-48) Monocytes (%) (Auto) 7 % (0-9) Eosinophils (%) (Auto) 2 % (0-3) Basophils (%) (Auto) 0 % (0-3) Neutrophils # (Auto) 8.1 x10^3uL (1.8-7.7) Lymphocytes # (Auto) 1.0 x10^3/uL (1.0-4.8) Monocytes # (Auto) 0.7 x10^3/uL (0.0-1.1) Eosinophils # (Auto) 0.2 x10^3/uL (0.0-0.7) Basophils # (Auto) 0.0 x10^3/uL (0.0-0.2) Sodium Level 137 mmol/L (136-145) Potassium Level 3.9 mmol/L (3.5-5.1) Chloride Level 99 mmol/L (98-107) Carbon Dioxide Level 28 mmol/L (21-32) Anion Gap 10 (6-14) Blood Urea Nitrogen 15 mg/dL (7-20) Creatinine 0.8 mg/dL (0.6-1.0) Estimated GFR (Cockcroft-Gault) 67.7 Glucose Level 113 mg/dL (70-99) Calcium Level 9.6 mg/dL (8.5-10.1) Total Bilirubin 0.4 mg/dL (0.2-1.0) Direct Bilirubin 0.1 mg/dL (0.0-0.2) Aspartate Amino Transf (AST/SGOT) 17 U/L (15-37) Alanine Aminotransferase (ALT/SGPT) 17 U/L (14-59) Alkaline Phosphatase 104 U/L (46-116) Troponin I Quantitative < 0.017 ng/mL (0.000-0.055) Total Protein 7.6 g/dL (6.4-8.2) Albumin 3.9 g/dL (3.4-5.0) Lipase 141 U/L (73-393) Urine Collection Type Unknown Urine Color Yellow Urine Clarity Clear Urine pH 7.0 Urine Specific [place] 1.015 Urine Protein Negative mg/dL (NEG-TRACE) Urine Glucose (UA) Negative mg/dL (NEG) Urine Ketones (Stick) 15 mg/dL (NEG) Urine Blood Negative (NEG) Urine Nitrite Negative (NEG) Urine Bilirubin Negative (NEG) Urine Urobilinogen Dipstick 0.2 mg/dL (0.2 mg/dL) Urine Leukocyte Esterase Trace (NEG) Urine RBC 1-2 /HPF (0-2) Urine WBC 1-4 /HPF (0-4) Urine Squamous Epithelial Cells Few /LPF Urine Transitional Epithelial Cells Few /LPF Urine Bacteria 0 /HPF (0-FEW) Urine Hyaline Casts Moderate /HPF Urine Mucus Mod /LPF VTE Prophylaxis Ordered VTE Prophylaxis Devices: Yes VTE Pharmacological Prophylaxi: Yes Assessment/Plan Assessment/Plan 1. VERTIGO, most likely peripheral in nature given DRAMATIC sxs and SIGNF improvement with a dose of low dose meclizine, teach nat, PT/OT, MEclizine prn ; did not want mri, i am ok with it as peripheral cause more likely than central in her case 2. HTN, urgency - resume home meds, add prns, did not take BP meds today prior to [place] 3. Anxiety NOS- home xanax prn 4. Acute on chronic back pain - claims ibuprofen at home did not help, trial of lidoderm patch, agreeable to physiatry consult Seen at ER CORY HICKEY MD Sep 25, 2017 16:36
[2017-09-25 17:07] VITALS: BP 135/90
[2017-09-25] MEDS: IV NORMAL SALINE 1000ML BAG 1,000 ML IV SCH (17:45)
[2017-09-25] MEDS: LIDOCAINE (700MG/PATCH) PATCH. TD SCH (17:46)
[2017-09-25] MEDS: ALPRAZolam 0.25 MG TABLET PO PRN ×2 (17:49→23:48)
[2017-09-25 19:43] VITALS: BP 133/75
[2017-09-25 23:21] VITALS: BP 131/69
[2017-09-26] MEDS: ALPRAZolam 0.25 MG TABLET PO PRN ×2 (01:15→13:50)
[2017-09-26] MEDS: IV NORMAL SALINE 1000ML BAG 1,000 ML IV SCH ×2 (01:15→11:52)
[2017-09-26 03:24] VITALS: BP 104/58
[2017-09-26 04:58] LABS: BASO % 1 % (0-3); EOS % 7 % (0-3); HEMATOCRIT 32.2 % (36.0-47.0); LYMPH # 1.8 x10^3/uL (1.0-4.8); LYMPH % 23 % (24-48); MEAN CORPUSCULAR HEMOGLOBIN 29 pg (25-35); MEAN CORPUSCULAR HGB CONC 34 g/dL (31-37); MEAN CORPUSCULAR VOLUME 86 fL (79-100); MONO % 11 % (0-9); NEUT % 59 % (31-73); PLATELET COUNT 322 x10^3/uL (140-400); RED BLOOD COUNT 3.73 x10^6/uL (3.50-5.40); RED CELL DISTRIBUTION WIDTH 13.9 % (11.5-14.5); WHITE BLOOD COUNT 8.1 x10^3/uL (4.0-11.0)
[2017-09-26 05:13] LABS: CALCIUM 8.6 mg/dL (8.5-10.1); CREATININE 0.7 mg/dL (0.6-1.0); POTASSIUM 3.8 mmol/L (3.5-5.1)
[2017-09-26 07:00] VITALS: BP 121/59
[2017-09-26] MEDS ORDERED: PANTOPRAZOLE 40 MG TABLET.DR. PO SCH (07:30)
[2017-09-26] MEDS ORDERED: FERROUS SULFATE 325 MG TABLET. PO SCH (08:00)
[2017-09-26] MEDS ORDERED: amLODIPine BESYLATE 10 MG TABLET PO SCH (09:00)
[2017-09-26] MEDS ORDERED: VITAMIN B COMPLEX TABLET. PO SCH (09:00)
[2017-09-26] MEDS: LIDOCAINE (700MG/PATCH) PATCH. TD SCH (09:37)
[2017-09-26] MEDS ORDERED: IBUPROFEN 600 MG TABLET. PO PRN (09:45)
[2017-09-26] MEDS ORDERED: ACETAMINOPHEN 325 MG TABLET. PO PRN (09:45)
[2017-09-26] MEDS ORDERED: CONTRAST GIVEN MC PRN (10:30)
[2017-09-26] MEDS ORDERED: IOHEXOL 300 MG/ML 75 ML VIAL IV ONE (10:30)
[2017-09-26 11:00] VITALS: BP 125/58
--- NOTE | 2017-09-26 12:14 | PDOC2 ---
NEUROLOGY CONSULT Date of Admission Date of Admission DATE: 09/26/17 TIME: 12:09 Reason for Consult Reason for Consult: Vertigo Referring Physician Referring Physician: Dr. Bravo PCP: Dr. Obando Source Source: Chart review, Patient History of Present Illness History of Present Illness The patient is an 87-year-old right-handed female who had an attack of vertigo at the [facility] [employer] yesterday. There is no diplopia, dysarthria, dysphagia, numbness, weakness, headache, tinnitus, or change in her hearing loss. She had a similar episode in September 2015. MRI of the brain than was negative. She feels fine now and wants to go home. She does have chronic back pain, worse this weekend after working in her home. Past Medical History Cardiovascular: HTN, Hyperlipidemia CENTRAL NERVOUS SYSTEM: Other (Vertigo) GI: GERD, Peptic Ulcer disease, Other ( esophagitis, [place] near) Psych: Anxiety Past Surgical History Past Surgical History: Appendectomy Family History Family History: CAD Social History Social History , lives alone, no alcohol or tobacco Current Medications Current Medications Current Medications Meclizine HCl (Antivert) 25 mg 1X ONCE PO Last administered on 09/25/17 14: 18; Start 09/25/17 at 14:15; Stop 09/25/17 at 14:16; Status DC Sodium Chloride 500 ml @ 500 mls/hr 1X ONCE IV Last administered on 14:21; Start 09/25/17 at 14:15; Stop 09/25/17 at 15:14; Status DC Ondansetron HCl (Zofran) 4 mg PRN Q8HRS PRN IV NAUSEA/VOMITING Last administered on 09/25/17 16:05; Start 09/25/17 at 16:00; Stop 09/25/17 at 16 :28; Status DC Morphine Sulfate 2 mg PRN Q2HR PRN IV PAIN Last administered on 09/25/17 16: 06; Start 09/25/17 at 16:00; Stop 09/26/17 at 15:59 Sodium Chloride 1,000 ml @ 100 mls/hr Q10H IV Last administered on 09/26/17 01:15; Start 09/25/17 at 15:52; Stop 09/26/17 at 15:51 Ondansetron HCl (Zofran) 4 mg PRN Q6HRS PRN IV NAUSEA/VOMITING; Start at 16:30; Stop 09/26/17 at 16:29 Lidocaine (Lidoderm) 1 patch DAILY TD Last administered on 09/26/17 09:37; Start 09/25/17 at 16:30 Labetalol HCl (Normodyne) 10 mg PRN Q2HR PRN IVP HYPERTENSION, SEE COMMENTS; Start 09/25/17 at 16:30 Meclizine HCl (Antivert) 25 mg PRN Q6HRS PRN PO dizzy; Start 09/25/17 at 16:30 Zolpidem Tartrate (Ambien) 5 mg PRN QHS PRN PO INSOMNIA; Start 09/25/17 at 16: 30 Alprazolam (Xanax) 0.25 mg PRN Q8HRS PRN PO ANXIETY / AGITATION Last administered on 09/26/17 01:15; Start 09/25/17 at 16:30 Amlodipine Besylate (Norvasc) 10 mg DAILY PO Last administered on 09/26/17 09 :35; Start 09/26/17 at 09:00 Pantoprazole Sodium (Protonix) 40 mg DAILYAC PO Last administered on 09:35; Start 09/26/17 at 07:30 Ferrous Sulfate (Feosol) 325 mg DAILYWBKFT PO Last administered on 09/26/17 09:35; Start 09/26/17 at 08:00 Vitamin B Complex (Ilan B) 1 tab DAILY PO Last administered on 09/26/17 09:32 ; Start 09/26/17 at 09:00 Ketorolac Tromethamine (Toradol) 15 mg PRN Q6HRS PRN IV PAIN; Start 09/25/17 at 16:30; Stop 09/30/17 at 16:29 Acetaminophen/ Hydrocodone Bitart (Lortab 5/325) 1 tab PRN Q4HRS PRN PO PAIN; Start 09/25/17 at 16:30 Diphenhydramine HCl (Benadryl) 25 mg PRN QHS PRN PO INSOMNIA; Start 09/25/17 at 16:30 Acetaminophen (Tylenol) 650 mg PRN Q6HRS PRN PO MILD PAIN; Start 09/26/17 at 09:45 Ibuprofen (Motrin) 600 mg PRN Q6HRS PRN PO INFLAMMATION; Start 09/26/17 at 09: 45 Iohexol (Omnipaque 300 Mg/ml) 75 ml 1X ONCE IV ; Start 09/26/17 at 10:30; Stop 09/26/17 at 10:31; Status DC Info (Do NOT chart on this entry -- for MONITORING) 1 each PRN DAILY PRN MC SEE COMMENTS; Start 09/26/17 at 10:30; Stop 09/28/17 at 10:29 Active Scripts Active Pantoprazole Sodium 40 Mg Tablet.dr 40 Mg PO DAILYAC Amlodipine Besylate 10 Mg Tablet 10 Mg PO DAILY Xanax (Alprazolam) 0.25 Mg Tablet 1 Tab PO PRN Q8HRS PRN Reported Iron (Ferrous Sulfate, Dried) Unknown Strength Tablet.er Unknown Dose PO Super B Complex (Vitamin B Complex & Vit C No.4) Unknown Strength Tablet Unknown Dose PO Garlic Unknown Strength Capsule Unknown Dose PO Allergies Allergies: Coded Allergies: lisinopril (Verified Allergy, Intermediate, 09/25/17) cough ROS Review of System Negative for fevers, chills, weight loss, shortness of breath, chest pain, indigestion, hematochezia, melena, dysuria. Full 14-point review systems is negative. Physical Exam Physical Examination PHYSICAL EXAMINATION: Vital signs: see above. General appearance is normal and in no acute distress. HEENT: Normocephalic and nontraumatic. Eyes, nose, ears, and throat are unremarkable. Neck is supple. No lymphadenopathy. No bruits are heard over the carotid artery. No crepitus. NEUROLOGICAL EXAMINATION: Mental Status Examination: Alert. Oriented to time, place, and person. Answers questions and follows commends. Pupils are equal round and reactive to light and accommodation. Extraocular movements are intact. Visual field exam shows no defect on the direct confrontation. No motor or sensory deficits on the facial exam. Uvula in the midline and the soft palate elevated symmetrically. No deviation of the tongue to any direction. Gross hearing is normal. Shoulder shrug normal. Muscle tone is normal. Muscle strength is 5. Deep tendon reflexes are 2+ all around. Plantar reflex is with flexion response bilaterally. [id number] test performance is accurate. Tandem walk test is Normal for age. Alternative movements are accurate. Romberg test is negative. Gait is normal even without hurricane. Sensory exam shows no deficits. No cerebellar signs are elicited. Vitals VITALS Vital Signs Date Time Temp Pulse Resp B/P (MAP) Pulse Ox O2 Delivery O2 Flow Rate FiO2 09/26/17 11:00 97.7 60 18 125/58 (80) 94 Room Air 97.7 Labs Labs Laboratory Tests Test 09/25/17 13:55 09/25/17 14:55 09/26/17 04:34 White Blood Count 10.0 x10^3/uL (4.0-11.0) 8.1 x10^3/uL (4.0-11.0) Red Blood Count 4.35 x10^6/uL (3.50-5.40) 3.73 x10^6/uL (3.50-5.40) Hemoglobin 12.9 g/dL (12.0-15.5) 11.0 g/dL (12.0-15.5) Hematocrit 37.8 % (36.0-47.0) 32.2 % (36.0-47.0) Mean Corpuscular Volume 87 fL (79-100) 86 fL (79-100) Mean Corpuscular Hemoglobin 30 pg (25-35) 29 pg (25-35) Mean Corpuscular Hemoglobin Concent 34 g/dL (31-37) 34 g/dL (31-37) Red Cell Distribution Width 14.1 % (11.5-14.5) 13.9 % (11.5-14.5) Platelet Count 374 x10^3/uL (140-400) 322 x10^3/uL (140-400) Neutrophils (%) (Auto) 81 % (31-73) 59 % (31-73) Lymphocytes (%) (Auto) 10 % (24-48) 23 % (24-48) Monocytes (%) (Auto) 7 % (0-9) 11 % (0-9) Eosinophils (%) (Auto) 2 % (0-3) 7 % (0-3) Basophils (%) (Auto) 0 % (0-3) 1 % (0-3) Neutrophils # (Auto) 8.1 x10^3uL (1.8-7.7) 4.8 x10^3uL (1.8-7.7) Lymphocytes # (Auto) 1.0 x10^3/uL (1.0-4.8) 1.8 x10^3/uL (1.0-4.8) Monocytes # (Auto) 0.7 x10^3/uL (0.0-1.1) 0.9 x10^3/uL (0.0-1.1) Eosinophils # (Auto) 0.2 x10^3/uL (0.0-0.7) 0.6 x10^3/uL (0.0-0.7) Basophils # (Auto) 0.0 x10^3/uL (0.0-0.2) 0.0 x10^3/uL (0.0-0.2) Sodium Level 137 mmol/L (136-145) 139 mmol/L (136-145) Potassium Level 3.9 mmol/L (3.5-5.1) 3.8 mmol/L (3.5-5.1) Chloride Level 99 mmol/L (98-107) 106 mmol/L (98-107) Carbon Dioxide Level 28 mmol/L (21-32) 28 mmol/L (21-32) Anion Gap 10 (6-14) 5 (6-14) Blood Urea Nitrogen 15 mg/dL (7-20) 9 mg/dL (7-20) Creatinine 0.8 mg/dL (0.6-1.0) 0.7 mg/dL (0.6-1.0) Estimated GFR (Cockcroft-Gault) 67.7 79.0 Glucose Level 113 mg/dL (70-99) 91 mg/dL (70-99) Calcium Level 9.6 mg/dL (8.5-10.1) 8.6 mg/dL (8.5-10.1) Total Bilirubin 0.4 mg/dL (0.2-1.0) Direct Bilirubin 0.1 mg/dL (0.0-0.2) Aspartate Amino Transf (AST/SGOT) 17 U/L (15-37) Alanine Aminotransferase (ALT/SGPT) 17 U/L (14-59) Alkaline Phosphatase 104 U/L (46-116) Troponin I Quantitative < 0.017 ng/mL (0.000-0.055) Total Protein 7.6 g/dL (6.4-8.2) Albumin 3.9 g/dL (3.4-5.0) Lipase 141 U/L (73-393) Urine Collection Type Unknown Urine Color Yellow Urine Clarity Clear Urine pH 7.0 Urine Specific [place] 1.015 Urine Protein Negative mg/dL (NEG-TRACE) Urine Glucose (UA) Negative mg/dL (NEG) Urine Ketones (Stick) 15 mg/dL (NEG) Urine Blood Negative (NEG) Urine Nitrite Negative (NEG) Urine Bilirubin Negative (NEG) Urine Urobilinogen Dipstick 0.2 mg/dL (0.2 mg/dL) Urine Leukocyte Esterase Trace (NEG) Urine RBC 1-2 /HPF (0-2) Urine WBC 1-4 /HPF (0-4) Urine Squamous Epithelial Cells Few /LPF Urine Transitional Epithelial Cells Few /LPF Urine Bacteria 0 /HPF (0-FEW) Urine Hyaline Casts Moderate /HPF Urine Mucus Mod /LPF Laboratory Tests Test 09/25/17 13:55 09/25/17 14:55 09/26/17 04:34 White Blood Count 10.0 x10^3/uL (4.0-11.0) 8.1 x10^3/uL (4.0-11.0) Red Blood Count 4.35 x10^6/uL (3.50-5.40) 3.73 x10^6/uL (3.50-5.40) Hemoglobin 12.9 g/dL (12.0-15.5) 11.0 g/dL (12.0-15.5) Hematocrit 37.8 % (36.0-47.0) 32.2 % (36.0-47.0) Mean Corpuscular Volume 87 fL (79-100) 86 fL (79-100) Mean Corpuscular Hemoglobin 30 pg (25-35) 29 pg (25-35) Mean Corpuscular Hemoglobin Concent 34 g/dL (31-37) 34 g/dL (31-37) Red Cell Distribution Width 14.1 % (11.5-14.5) 13.9 % (11.5-14.5) Platelet Count 374 x10^3/uL (140-400) 322 x10^3/uL (140-400) Neutrophils (%) (Auto) 81 % (31-73) 59 % (31-73) Lymphocytes (%) (Auto) 10 % (24-48) 23 % (24-48) Monocytes (%) (Auto) 7 % (0-9) 11 % (0-9) Eosinophils (%) (Auto) 2 % (0-3) 7 % (0-3) Basophils (%) (Auto) 0 % (0-3) 1 % (0-3) Neutrophils # (Auto) 8.1 x10^3uL (1.8-7.7) 4.8 x10^3uL (1.8-7.7) Lymphocytes # (Auto) 1.0 x10^3/uL (1.0-4.8) 1.8 x10^3/uL (1.0-4.8) Monocytes # (Auto) 0.7 x10^3/uL (0.0-1.1) 0.9 x10^3/uL (0.0-1.1) Eosinophils # (Auto) 0.2 x10^3/uL (0.0-0.7) 0.6 x10^3/uL (0.0-0.7) Basophils # (Auto) 0.0 x10^3/uL (0.0-0.2) 0.0 x10^3/uL (0.0-0.2) Sodium Level 137 mmol/L (136-145) 139 mmol/L (136-145) Potassium Level 3.9 mmol/L (3.5-5.1) 3.8 mmol/L (3.5-5.1) Chloride Level 99 mmol/L (98-107) 106 mmol/L (98-107) Carbon Dioxide Level 28 mmol/L (21-32) 28 mmol/L (21-32) Anion Gap 10 (6-14) 5 (6-14) Blood Urea Nitrogen 15 mg/dL (7-20) 9 mg/dL (7-20) Creatinine 0.8 mg/dL (0.6-1.0) 0.7 mg/dL (0.6-1.0) Estimated GFR (Cockcroft-Gault) 67.7 79.0 Glucose Level 113 mg/dL (70-99) 91 mg/dL (70-99) Calcium Level 9.6 mg/dL (8.5-10.1) 8.6 mg/dL (8.5-10.1) Total Bilirubin 0.4 mg/dL (0.2-1.0) Direct Bilirubin 0.1 mg/dL (0.0-0.2) Aspartate Amino Transf (AST/SGOT) 17 U/L (15-37) Alanine Aminotransferase (ALT/SGPT) 17 U/L (14-59) Alkaline Phosphatase 104 U/L (46-116) Troponin I Quantitative < 0.017 ng/mL (0.000-0.055) Total Protein 7.6 g/dL (6.4-8.2) Albumin 3.9 g/dL (3.4-5.0) Lipase 141 U/L (73-393) Urine Collection Type Unknown Urine Color Yellow Urine Clarity Clear Urine pH 7.0 Urine Specific [place] 1.015 Urine Protein Negative mg/dL (NEG-TRACE) Urine Glucose (UA) Negative mg/dL (NEG) Urine Ketones (Stick) 15 mg/dL (NEG) Urine Blood Negative (NEG) Urine Nitrite Negative (NEG) Urine Bilirubin Negative (NEG) Urine Urobilinogen Dipstick 0.2 mg/dL (0.2 mg/dL) Urine Leukocyte Esterase Trace (NEG) Urine RBC 1-2 /HPF (0-2) Urine WBC 1-4 /HPF (0-4) Urine Squamous Epithelial Cells Few /LPF Urine Transitional Epithelial Cells Few /LPF Urine Bacteria 0 /HPF (0-FEW) Urine Hyaline Casts Moderate /HPF Urine Mucus Mod /LPF Images Images CT HEAD WITHOUT CONTRAST History: vertigo Comparison: CT head dated 10/05/2015. Procedure: Axial images are obtained of the head from the skull base through the vertex without IV contrast. Findings: Mild cerebral and cerebellar atrophy. Mild periventricular hypoattenuation is nonspecific but likely related to chronic small vessel ischemic disease. Baker-white matter differentiation is preserved. The ventricles and sulci are normal for the patient's age.. No mass-effect, midline shift, hemorrhage or obvious acute infarction is identified. Basilar cisterns are patent. Bone windows demonstrate no significant calvarial abnormality.The visualized paranasal sinuses appear clear. Mastoid air cells are well aerated. IMPRESSION: 1. No acute intracranial abnormality. 2. Mild cerebral and cerebellar atrophy. Mild chronic small vessel ischemic disease. 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 I find no evidence of a central cause of vertigo. All symptoms have resolved. Chronic back pain, no red flags on exam for radiiculopathy or cauda equina Recommendations: Okay for discharge. Patient does not want a brain MRI and that is reasonable as it was normal last time in her exam has returned to normal. Also cancel CTA Back pain per Dr. Handley Follow-up with neurology as needed. Thank you for letting me help with the patient's care. ANYI MOSER MD Sep 26, 2017 12:14
--- NOTE | 2017-09-26 12:31 | PDOC ---
PROGRESS NOTES Chief Complaint Chief Complaint Vertigo HTN Hyperlipidemia Diverticulosis GERD Peptic Ulcer disease Anemia NOS Anxiety Low back pain Osteoarthritis Osteoporosis History of Present Illness History of Present Illness This is an 87 year old pleasant lady who presented to the ER last night with a vertigo. Today she was examined at bedside. She was sitting in her bed and was in a good humor. She is alert, oriented and not in acute distress. If all tests come up well and it is with specialist she can get discharged today. Vitals Vitals Vital Signs Date Time Temp Pulse Resp B/P (MAP) Pulse Ox O2 Delivery O2 Flow Rate FiO2 09/26/17 11:00 97.7 60 18 125/58 (80) 94 Room Air 97.7 Physical Exam General: Alert, Oriented X3, Cooperative, No acute distress Heart: Regular rate, Normal S1, Normal S2 Lungs: Clear Abdomen: Normal bowel sounds, Soft, No tenderness, No hepatosplenomegaly, No masses Extremities: No clubbing, No cyanosis, No edema, Normal pulses, No tenderness/ swelling Skin: No rashes, No breakdown, No significant lesion Labs LABS Laboratory Tests Test 09/25/17 13:55 09/25/17 14:55 09/26/17 04:34 White Blood Count 10.0 x10^3/uL (4.0-11.0) 8.1 x10^3/uL (4.0-11.0) Red Blood Count 4.35 x10^6/uL (3.50-5.40) 3.73 x10^6/uL (3.50-5.40) Hemoglobin 12.9 g/dL (12.0-15.5) 11.0 g/dL (12.0-15.5) Hematocrit 37.8 % (36.0-47.0) 32.2 % (36.0-47.0) Mean Corpuscular Volume 87 fL (79-100) 86 fL (79-100) Mean Corpuscular Hemoglobin 30 pg (25-35) 29 pg (25-35) Mean Corpuscular Hemoglobin Concent 34 g/dL (31-37) 34 g/dL (31-37) Red Cell Distribution Width 14.1 % (11.5-14.5) 13.9 % (11.5-14.5) Platelet Count 374 x10^3/uL (140-400) 322 x10^3/uL (140-400) Neutrophils (%) (Auto) 81 % (31-73) 59 % (31-73) Lymphocytes (%) (Auto) 10 % (24-48) 23 % (24-48) Monocytes (%) (Auto) 7 % (0-9) 11 % (0-9) Eosinophils (%) (Auto) 2 % (0-3) 7 % (0-3) Basophils (%) (Auto) 0 % (0-3) 1 % (0-3) Neutrophils # (Auto) 8.1 x10^3uL (1.8-7.7) 4.8 x10^3uL (1.8-7.7) Lymphocytes # (Auto) 1.0 x10^3/uL (1.0-4.8) 1.8 x10^3/uL (1.0-4.8) Monocytes # (Auto) 0.7 x10^3/uL (0.0-1.1) 0.9 x10^3/uL (0.0-1.1) Eosinophils # (Auto) 0.2 x10^3/uL (0.0-0.7) 0.6 x10^3/uL (0.0-0.7) Basophils # (Auto) 0.0 x10^3/uL (0.0-0.2) 0.0 x10^3/uL (0.0-0.2) Sodium Level 137 mmol/L (136-145) 139 mmol/L (136-145) Potassium Level 3.9 mmol/L (3.5-5.1) 3.8 mmol/L (3.5-5.1) Chloride Level 99 mmol/L (98-107) 106 mmol/L (98-107) Carbon Dioxide Level 28 mmol/L (21-32) 28 mmol/L (21-32) Anion Gap 10 (6-14) 5 (6-14) Blood Urea Nitrogen 15 mg/dL (7-20) 9 mg/dL (7-20) Creatinine 0.8 mg/dL (0.6-1.0) 0.7 mg/dL (0.6-1.0) Estimated GFR (Cockcroft-Gault) 67.7 79.0 Glucose Level 113 mg/dL (70-99) 91 mg/dL (70-99) Calcium Level 9.6 mg/dL (8.5-10.1) 8.6 mg/dL (8.5-10.1) Total Bilirubin 0.4 mg/dL (0.2-1.0) Direct Bilirubin 0.1 mg/dL (0.0-0.2) Aspartate Amino Transf (AST/SGOT) 17 U/L (15-37) Alanine Aminotransferase (ALT/SGPT) 17 U/L (14-59) Alkaline Phosphatase 104 U/L (46-116) Troponin I Quantitative < 0.017 ng/mL (0.000-0.055) Total Protein 7.6 g/dL (6.4-8.2) Albumin 3.9 g/dL (3.4-5.0) Lipase 141 U/L (73-393) Urine Collection Type Unknown Urine Color Yellow Urine Clarity Clear Urine pH 7.0 Urine Specific [place] 1.015 Urine Protein Negative mg/dL (NEG-TRACE) Urine Glucose (UA) Negative mg/dL (NEG) Urine Ketones (Stick) 15 mg/dL (NEG) Urine Blood Negative (NEG) Urine Nitrite Negative (NEG) Urine Bilirubin Negative (NEG) Urine Urobilinogen Dipstick 0.2 mg/dL (0.2 mg/dL) Urine Leukocyte Esterase Trace (NEG) Urine RBC 1-2 /HPF (0-2) Urine WBC 1-4 /HPF (0-4) Urine Squamous Epithelial Cells Few /LPF Urine Transitional Epithelial Cells Few /LPF Urine Bacteria 0 /HPF (0-FEW) Urine Hyaline Casts Moderate /HPF Urine Mucus Mod /LPF Review of Systems Review of Systems fatigue and weakness Assessment and Plan Assessmemt and Plan Problems Medical Problems: (1) Vertigo Status: Acute Assessment: Vertigo HTN Hyperlipidemia Diverticulosis GERD Peptic Ulcer disease Anemia NOS Anxiety Low back pain Osteoarthritis Osteoporosis Plan: Possible discharge today if ok with specialist Discharge home with home león Continue current meds Problems: Comment Review of Relevant I have reviewed the following items gianna (where applicable) has been applied. Labs Laboratory Tests Test 09/25/17 13:55 09/25/17 14:55 09/26/17 04:34 White Blood Count 10.0 x10^3/uL (4.0-11.0) 8.1 x10^3/uL (4.0-11.0) Red Blood Count 4.35 x10^6/uL (3.50-5.40) 3.73 x10^6/uL (3.50-5.40) Hemoglobin 12.9 g/dL (12.0-15.5) 11.0 g/dL (12.0-15.5) Hematocrit 37.8 % (36.0-47.0) 32.2 % (36.0-47.0) Mean Corpuscular Volume 87 fL (79-100) 86 fL (79-100) Mean Corpuscular Hemoglobin 30 pg (25-35) 29 pg (25-35) Mean Corpuscular Hemoglobin Concent 34 g/dL (31-37) 34 g/dL (31-37) Red Cell Distribution Width 14.1 % (11.5-14.5) 13.9 % (11.5-14.5) Platelet Count 374 x10^3/uL (140-400) 322 x10^3/uL (140-400) Neutrophils (%) (Auto) 81 % (31-73) 59 % (31-73) Lymphocytes (%) (Auto) 10 % (24-48) 23 % (24-48) Monocytes (%) (Auto) 7 % (0-9) 11 % (0-9) Eosinophils (%) (Auto) 2 % (0-3) 7 % (0-3) Basophils (%) (Auto) 0 % (0-3) 1 % (0-3) Neutrophils # (Auto) 8.1 x10^3uL (1.8-7.7) 4.8 x10^3uL (1.8-7.7) Lymphocytes # (Auto) 1.0 x10^3/uL (1.0-4.8) 1.8 x10^3/uL (1.0-4.8) Monocytes # (Auto) 0.7 x10^3/uL (0.0-1.1) 0.9 x10^3/uL (0.0-1.1) Eosinophils # (Auto) 0.2 x10^3/uL (0.0-0.7) 0.6 x10^3/uL (0.0-0.7) Basophils # (Auto) 0.0 x10^3/uL (0.0-0.2) 0.0 x10^3/uL (0.0-0.2) Sodium Level 137 mmol/L (136-145) 139 mmol/L (136-145) Potassium Level 3.9 mmol/L (3.5-5.1) 3.8 mmol/L (3.5-5.1) Chloride Level 99 mmol/L (98-107) 106 mmol/L (98-107) Carbon Dioxide Level 28 mmol/L (21-32) 28 mmol/L (21-32) Anion Gap 10 (6-14) 5 (6-14) Blood Urea Nitrogen 15 mg/dL (7-20) 9 mg/dL (7-20) Creatinine 0.8 mg/dL (0.6-1.0) 0.7 mg/dL (0.6-1.0) Estimated GFR (Cockcroft-Gault) 67.7 79.0 Glucose Level 113 mg/dL (70-99) 91 mg/dL (70-99) Calcium Level 9.6 mg/dL (8.5-10.1) 8.6 mg/dL (8.5-10.1) Total Bilirubin 0.4 mg/dL (0.2-1.0) Direct Bilirubin 0.1 mg/dL (0.0-0.2) Aspartate Amino Transf (AST/SGOT) 17 U/L (15-37) Alanine Aminotransferase (ALT/SGPT) 17 U/L (14-59) Alkaline Phosphatase 104 U/L (46-116) Troponin I Quantitative < 0.017 ng/mL (0.000-0.055) Total Protein 7.6 g/dL (6.4-8.2) Albumin 3.9 g/dL (3.4-5.0) Lipase 141 U/L (73-393) Urine Collection Type Unknown Urine Color Yellow Urine Clarity Clear Urine pH 7.0 Urine Specific [place] 1.015 Urine Protein Negative mg/dL (NEG-TRACE) Urine Glucose (UA) Negative mg/dL (NEG) Urine Ketones (Stick) 15 mg/dL (NEG) Urine Blood Negative (NEG) Urine Nitrite Negative (NEG) Urine Bilirubin Negative (NEG) Urine Urobilinogen Dipstick 0.2 mg/dL (0.2 mg/dL) Urine Leukocyte Esterase Trace (NEG) Urine RBC 1-2 /HPF (0-2) Urine WBC 1-4 /HPF (0-4) Urine Squamous Epithelial Cells Few /LPF Urine Transitional Epithelial Cells Few /LPF Urine Bacteria 0 /HPF (0-FEW) Urine Hyaline Casts Moderate /HPF Urine Mucus Mod /LPF Laboratory Tests Test 09/25/17 13:55 09/25/17 14:55 09/26/17 04:34 White Blood Count 10.0 x10^3/uL (4.0-11.0) 8.1 x10^3/uL (4.0-11.0) Red Blood Count 4.35 x10^6/uL (3.50-5.40) 3.73 x10^6/uL (3.50-5.40) Hemoglobin 12.9 g/dL (12.0-15.5) 11.0 g/dL (12.0-15.5) Hematocrit 37.8 % (36.0-47.0) 32.2 % (36.0-47.0) Mean Corpuscular Volume 87 fL (79-100) 86 fL (79-100) Mean Corpuscular Hemoglobin 30 pg (25-35) 29 pg (25-35) Mean Corpuscular Hemoglobin Concent 34 g/dL (31-37) 34 g/dL (31-37) Red Cell Distribution Width 14.1 % (11.5-14.5) 13.9 % (11.5-14.5) Platelet Count 374 x10^3/uL (140-400) 322 x10^3/uL (140-400) Neutrophils (%) (Auto) 81 % (31-73) 59 % (31-73) Lymphocytes (%) (Auto) 10 % (24-48) 23 % (24-48) Monocytes (%) (Auto) 7 % (0-9) 11 % (0-9) Eosinophils (%) (Auto) 2 % (0-3) 7 % (0-3) Basophils (%) (Auto) 0 % (0-3) 1 % (0-3) Neutrophils # (Auto) 8.1 x10^3uL (1.8-7.7) 4.8 x10^3uL (1.8-7.7) Lymphocytes # (Auto) 1.0 x10^3/uL (1.0-4.8) 1.8 x10^3/uL (1.0-4.8) Monocytes # (Auto) 0.7 x10^3/uL (0.0-1.1) 0.9 x10^3/uL (0.0-1.1) Eosinophils # (Auto) 0.2 x10^3/uL (0.0-0.7) 0.6 x10^3/uL (0.0-0.7) Basophils # (Auto) 0.0 x10^3/uL (0.0-0.2) 0.0 x10^3/uL (0.0-0.2) Sodium Level 137 mmol/L (136-145) 139 mmol/L (136-145) Potassium Level 3.9 mmol/L (3.5-5.1) 3.8 mmol/L (3.5-5.1) Chloride Level 99 mmol/L (98-107) 106 mmol/L (98-107) Carbon Dioxide Level 28 mmol/L (21-32) 28 mmol/L (21-32) Anion Gap 10 (6-14) 5 (6-14) Blood Urea Nitrogen 15 mg/dL (7-20) 9 mg/dL (7-20) Creatinine 0.8 mg/dL (0.6-1.0) 0.7 mg/dL (0.6-1.0) Estimated GFR (Cockcroft-Gault) 67.7 79.0 Glucose Level 113 mg/dL (70-99) 91 mg/dL (70-99) Calcium Level 9.6 mg/dL (8.5-10.1) 8.6 mg/dL (8.5-10.1) Total Bilirubin 0.4 mg/dL (0.2-1.0) Direct Bilirubin 0.1 mg/dL (0.0-0.2) Aspartate Amino Transf (AST/SGOT) 17 U/L (15-37) Alanine Aminotransferase (ALT/SGPT) 17 U/L (14-59) Alkaline Phosphatase 104 U/L (46-116) Troponin I Quantitative < 0.017 ng/mL (0.000-0.055) Total Protein 7.6 g/dL (6.4-8.2) Albumin 3.9 g/dL (3.4-5.0) Lipase 141 U/L (73-393) Urine Collection Type Unknown Urine Color Yellow Urine Clarity Clear Urine pH 7.0 Urine Specific [place] 1.015 Urine Protein Negative mg/dL (NEG-TRACE) Urine Glucose (UA) Negative mg/dL (NEG) Urine Ketones (Stick) 15 mg/dL (NEG) Urine Blood Negative (NEG) Urine Nitrite Negative (NEG) Urine Bilirubin Negative (NEG) Urine Urobilinogen Dipstick 0.2 mg/dL (0.2 mg/dL) Urine Leukocyte Esterase Trace (NEG) Urine RBC 1-2 /HPF (0-2) Urine WBC 1-4 /HPF (0-4) Urine Squamous Epithelial Cells Few /LPF Urine Transitional Epithelial Cells Few /LPF Urine Bacteria 0 /HPF (0-FEW) Urine Hyaline Casts Moderate /HPF Urine Mucus Mod /LPF Medications Current Medications Meclizine HCl (Antivert) 25 mg 1X ONCE PO Last administered on 09/25/17 14: 18; Start 09/25/17 at 14:15; Stop 09/25/17 at 14:16; Status DC Sodium Chloride 500 ml @ 500 mls/hr 1X ONCE IV Last administered on 14:21; Start 09/25/17 at 14:15; Stop 09/25/17 at 15:14; Status DC Ondansetron HCl (Zofran) 4 mg PRN Q8HRS PRN IV NAUSEA/VOMITING Last administered on 09/25/17 16:05; Start 09/25/17 at 16:00; Stop 09/25/17 at 16 :28; Status DC Morphine Sulfate 2 mg PRN Q2HR PRN IV PAIN Last administered on 09/25/17 16: 06; Start 09/25/17 at 16:00; Stop 09/26/17 at 15:59 Sodium Chloride 1,000 ml @ 100 mls/hr Q10H IV Last administered on 09/26/17 01:15; Start 09/25/17 at 15:52; Stop 09/26/17 at 15:51 Ondansetron HCl (Zofran) 4 mg PRN Q6HRS PRN IV NAUSEA/VOMITING; Start at 16:30; Stop 09/26/17 at 16:29 Lidocaine (Lidoderm) 1 patch DAILY TD Last administered on 09/26/17 09:37; Start 09/25/17 at 16:30 Labetalol HCl (Normodyne) 10 mg PRN Q2HR PRN IVP HYPERTENSION, SEE COMMENTS; Start 09/25/17 at 16:30 Meclizine HCl (Antivert) 25 mg PRN Q6HRS PRN PO dizzy; Start 09/25/17 at 16:30 Zolpidem Tartrate (Ambien) 5 mg PRN QHS PRN PO INSOMNIA; Start 09/25/17 at 16: 30 Alprazolam (Xanax) 0.25 mg PRN Q8HRS PRN PO ANXIETY / AGITATION Last administered on 09/26/17 01:15; Start 09/25/17 at 16:30 Amlodipine Besylate (Norvasc) 10 mg DAILY PO Last administered on 09/26/17 09 :35; Start 09/26/17 at 09:00 Pantoprazole Sodium (Protonix) 40 mg DAILYAC PO Last administered on 09:35; Start 09/26/17 at 07:30 Ferrous Sulfate (Feosol) 325 mg DAILYWBKFT PO Last administered on 09/26/17 09:35; Start 09/26/17 at 08:00 Vitamin B Complex (Ilan B) 1 tab DAILY PO Last administered on 09/26/17 09:32 ; Start 09/26/17 at 09:00 Ketorolac Tromethamine (Toradol) 15 mg PRN Q6HRS PRN IV PAIN; Start 09/25/17 at 16:30; Stop 09/30/17 at 16:29 Acetaminophen/ Hydrocodone Bitart (Lortab 5/325) 1 tab PRN Q4HRS PRN PO PAIN; Start 09/25/17 at 16:30 Diphenhydramine HCl (Benadryl) 25 mg PRN QHS PRN PO INSOMNIA; Start 09/25/17 at 16:30 Acetaminophen (Tylenol) 650 mg PRN Q6HRS PRN PO MILD PAIN; Start 09/26/17 at 09:45 Ibuprofen (Motrin) 600 mg PRN Q6HRS PRN PO INFLAMMATION; Start 09/26/17 at 09: 45 Iohexol (Omnipaque 300 Mg/ml) 75 ml 1X ONCE IV ; Start 09/26/17 at 10:30; Stop 09/26/17 at 10:31; Status DC Info (Do NOT chart on this entry -- for MONITORING) 1 each PRN DAILY PRN MC SEE COMMENTS; Start 09/26/17 at 10:30; Stop 09/28/17 at 10:29 Active Scripts Active Pantoprazole Sodium 40 Mg Tablet.dr 40 Mg PO DAILYAC Amlodipine Besylate 10 Mg Tablet 10 Mg PO DAILY Xanax (Alprazolam) 0.25 Mg Tablet 1 Tab PO PRN Q8HRS PRN Reported Iron (Ferrous Sulfate, Dried) Unknown Strength Tablet.er Unknown Dose PO Super B Complex (Vitamin B Complex & Vit C No.4) Unknown Strength Tablet Unknown Dose PO Garlic Unknown Strength Capsule Unknown Dose PO Vitals/I & O Vital Sign - Last 24 Hours 09/25/17 09/25/17 09/25/17 09/25/17 13:10 14:15 15:00 16:06 Temp 98.3 98.3 Pulse 102 96 102 Resp 22 26 22 21 B/P (MAP) 184/86 (118) 156/91 (112) 174/76 (108) Pulse Ox 96 94 95 95 O2 Delivery Room Air Room Air Room Air Room Air 09/25/17 09/25/17 09/25/17 09/25/17 16:15 16:43 17:07 17:07 Temp 97.9 97.9 97.9 97.9 Pulse 99 102 104 104 Resp 18 18 B/P (MAP) 145/82 (103) 178/82 (114) 135/90 (105) 135/90 (105) Pulse Ox 95 95 94 94 O2 Delivery Room Air Room Air Room Air Room Air 09/25/17 09/25/17 09/25/17 09/25/17 19:42 19:43 20:00 23:21 Temp 98.0 98.1 98.0 98.1 Pulse 94 91 Resp 18 18 B/P (MAP) 133/75 (94) 131/69 (89) Pulse Ox 94 98 94 O2 Delivery Room Air Room Air Room Air 09/26/17 09/26/17 09/26/17 09/26/17 03:24 07:00 09:35 11:00 Temp 97.9 97.7 97.7 97.9 97.7 97.7 Pulse 65 58 58 60 Resp 18 18 18 B/P (MAP) 104/58 (73) 121/59 (79) 121/59 125/58 (80) Pulse Ox 98 94 94 O2 Delivery Room Air Room Air Room Air Intake and Output 09/26/17 09/26/17 09/27/17 15:00 23:00 07:00 Intake Total 300 ml Balance 300 ml LAURA GOTTI III DO Sep 26, 2017 12:31
[2017-09-26 14:30] VITALS: BP 125/58
--- NOTE | 2017-09-27 01:48 | CONS ---
DATE OF CONSULTATION: 09/26/2017 ATTENDING PHYSICIAN: Dr. Bravo. HISTORY OF PRESENT ILLNESS: This is an 87-year-old female known to me in the past. The patient lives alone, uses a cane. She had a lumbar corset that she uses on and off for her back pain. [place], had severe vertigo, needed to grab hold of things, was seen in the Emergency Room, got better with single dose of 25 mg of meclizine. The patient refused to have MRI scan and she even refused to have x-rays of her spine. The patient had problem with vertigo on and off and she usually takes meclizine. She apparently did not have any meclizine while at [facility]. The patient admits some upper and lower back pain. She denies any radiation of pain to the extremities. The patient denies any tingling or numbness sensation in the extremities. The patient was noted with hypertension. She apparently did not take any medication yesterday morning. The patient with known hypertension, hyperlipidemia, gastroesophageal reflux disease, peptic ulcer disease, diverticulosis, anemia, anxiety, lower back pain, osteoarthritis, osteoporosis, known allergic to lisinopril. She denies any trouble with her bowel or bladder control. She had a CT scan of the brain, which revealed no acute abnormality. It revealed mild cerebral and cerebellar atrophy and chronic small vessel ischemic disease to a mild degree. Chest x-ray revealed large hiatal hernia. The patient was seen by Physical Therapy today. They noted her to be independent. The patient is eager to go home. PHYSICAL EXAMINATION: Today revealed an elderly female, she is alert, oriented to place and person, follows commands appropriately, moves all 4 extremities voluntarily where she had 4/5 to 4+/5 grade muscle strength. Deep tendon reflexes are slightly exaggerated at both knees and ankles. She had equal perception of touch and pinprick sensation bilaterally. She had tenderness to palpation over cervical, thoracic and lumbar paraspinal muscles. Straight leg raising test is negative bilaterally. She had crepitus on range of motion of both knee joints without any obvious knee joint effusion. She is having pain while rolling from side to side, minimal degree of thoracic and lumbar paraspinal muscle spasm. Straight leg raising test is negative bilaterally. She is independent with walking while up using a walker. She can walk without the walker too. She had painful limited movements of thoracolumbar spine. ASSESSMENT: An elderly female with chronic back pain with recent exacerbation. No clinical evidence of ongoing thoracic or lumbar radiculopathy. She also had degenerative joint disease of both knees without any significant pain right now. She presents with vertigo, hypertension. I have advised her to obtain x-rays, but she does not want anything right now. I even offered her to take her to Inpatient Rehab Unit or Detention Care Unit for continued physical therapy to help ease her back pain, but she is not interested. She would like to try home health physical therapy. She does not have any transportation for outpatient therapy. I shall advised her to use lumbar corset which she had it at home as tolerated and use roller walker to help with her balance as she had some high level balance problems. She might have some problems with cervical spine, mild degree of cervical spinal stenosis that might be responsible for her high level balance problems. To also check to make sure she is emptying her bladder completely by bladder scan. I agree with the plan for home with home health followup when medically stable. Dr. Bravo, I appreciate asking me to participate in the care of this interesting patient. I will be glad to follow her with you as needed for her rehabilitation. KATIE QUINTANILLA MD DR: MEAGHAN/zakiya JOB#: [id number] / [id number] JILL Jacobson MD
== END 2017-09-26 16:55 | disposition home health service (06) ==
LOC: ER 13:09 → 6 SOUTH 15:36
PROVIDERS: ADMIT Internal Medicine; ATTEND Internal Medicine
DX: H81.399 Other peripheral vertigo, unspecified ear (principal); I16.0 Hypertensive urgency; F41.9 Anxiety disorder, unspecified; G89.29 Other chronic pain; I10 Essential (primary) hypertension; E78.5 Hyperlipidemia, unspecified; K21.9 Gastro-esophageal reflux disease without esophagitis; K57.90 Diverticulosis of intestine, part unspecified, without perforation or abscess without bleeding; M19.90 Unspecified osteoarthritis, unspecified site; M81.0 Age-related osteoporosis without current pathological fracture; E78.00 Pure hypercholesterolemia, unspecified; K44.9 Diaphragmatic hernia without obstruction or gangrene; H55.00 Unspecified nystagmus; K27.9 Peptic ulcer, site unspecified, unspecified as acute or chronic, without hemorrhage or perforation; M17.0 Bilateral primary osteoarthritis of knee; Z82.49 Family history of ischemic heart disease and other diseases of the circulatory system; Z87.11 Personal history of peptic ulcer disease
CPT/HCPCS: 36415; 70450; 71010; 80048; 80076; 81001; 83690; 84484; 85025; 87086; 93005; 96361; 96374; 96375; 97163; 97166; 99285; G0378; J2270; J2405; J7030; J7040; J8597; G0379